=== PATIENT | female | born 1935 | race Caucasian/White ===

== ENCOUNTER 2022-01-06 11:32 | Emergency (ER) | payer MEDICARE, SELFPAY ==
[2022-01-06 11:44] VITALS: BP 150/68; PULSE 68; RESP 16; TEMP 36.7; O2SAT 99
--- NOTE | 2022-01-06 11:49 | ED.SKABFB ---
HPI - Skin/Abscess/Foreign Bdy General Chief complaint: Skin/Abscess/Foreign Body Stated complaint: lac on left foot Time Seen by Provider: 01/06/22 11:50 Source: patient Mode of arrival: ambulatory Limitations: no limitations History of Present Illness HPI narrative: Ms. Mccabe is a an 86-year-old female patient presented to the clinic today with complaints of a old wound to the bottom of the left foot just superior/lateral to the great toe. Laceration measures approximately 2 cm. She reports that she had been seen after stepping on a glass and this cut her foot 8 days ago. She reports that the clinic applied Steri-Strips to the affected area but would not suture it because the wound was old when she was seen. MD complaint: laceration Related Data Home Medications Medication Instructions Recorded Confirmed amlodipine 5 mg tablet 5 mg PO DAILY 01/06/22 01/06/22 levothyroxine 25 mcg tablet 25 mcg PO DAILY 01/06/22 01/06/22 losartan 50 mg tablet 50 mg PO DAILY 01/06/22 01/06/22 pantoprazole 40 mg tablet,delayed 40 mg PO DAILY 01/06/22 01/06/22 release pravastatin 40 mg tablet 40 mg PO DAILY 01/06/22 01/06/22 Allergies Allergy/AdvReac Type Severity Reaction Status Date / Time No Known Allergies Allergy Verified 01/06/22 11:48 Review of Systems Review of Systems: Pertinent positives per HPI. Patient denies any fever, chills, rash, headache, visual changes, dizziness, cough, runny nose, sore throat, shortness of breath, chest pain, palpitations, nausea, vomiting, diarrhea, constipation, abdominal pain, or any urinary issues. PMFSH Comments At the time of my signature, I reviewed and agree with the nursing past medical, surgical, social, and family history. There is no relevant family history pertinent to the patient complaint. Exam Narrative: General: Well-developed, well nourished, in no apparent distress Head: Normocephalic, atraumatic. Cardio: Regular rate and rhythm, s1 and s2 normal, no murmur appreciated. Resp: Clear to auscultation bilaterally, no rhonchi, rales, wheezing or rubs. Integumentary: [place], warm, and dry, approximately 2 cm open laceration that is well approximated to the bottom of the left lateral midfoot. Area is mildly red with mild tenderness to palpation without drainage. No induration palpable Course Course Emergency Course: Portions of this record may have been created with voice recognition software. Level of Care: Express Care Visit Vital Signs Vital signs: Vital Signs Temperature 36.7 C 01/06/22 11:44 Pulse Rate 68 01/06/22 11:44 Respiratory Rate 16 01/06/22 11:44 Blood Pressure 150/68 H 01/06/22 11:44 Pulse Oximetry 99 01/06/22 11:44 Oxygen Delivery Room Air 01/06/22 11:44 Temperature 36.7 C 01/06/22 11:44 Pulse Rate 68 01/06/22 11:44 Respiratory Rate 16 01/06/22 11:44 Blood Pressure 150/68 H 01/06/22 11:44 Pulse Oximetry 99 01/06/22 11:44 Oxygen Delivery Room Air 01/06/22 11:44 Vital signs reviewed MDM - Skin/Abscess/Foreign Bdy MDM Narrative Medical decision making narrative: At the time of assessment patient is resting comfortably on the exam table. She has an old wound to the left medial midfoot. Area has mild redness and tenderness to palpation. I will place her on some mupirocin cream and have her dress her wound twice daily. She is to follow-up with her PCP if symptoms worsen. Supportive measures were discussed and she voiced understanding of discharge instructions Differential Diagnosis Differential diagnosis: Likely abscess of skin or subcutaneous tissue, cellulitis and other (Skin infection) Discharge Plan Discharge Clinical Impression: Open wound Patient Disposition: Home, Self-Care Condition: Stable Instructions: Antibiotic Form, Laceration Without Closure (ED) Additional Instructions: Mupirocin cream as directed May keep covered during the day but leave it open to air at night Tylenol/Motrin
== END 2022-01-06 12:00 | disposition home or self-care (01) ==
PROVIDERS: Emergency Provider Nurse Practitioner Family; PCP Internal Medicine
DX: S91.302A Unspecified open wound, left foot, initial encounter (principal); W25.XXXA Contact with sharp glass, initial encounter; E78.00 Pure hypercholesterolemia, unspecified; I10 Essential (primary) hypertension; K21.9 Gastro-esophageal reflux disease without esophagitis; E03.9 Hypothyroidism, unspecified
CPT/HCPCS: 99213; G0463

== ENCOUNTER 2024-11-29 14:55 | Emergency (ER) | payer MEDICARE, SELFPAY ==
--- OUTSIDE RECORDS SUMMARY | 2024-11-29 14:59 | XMS_ITS | Encounter Summary ---
Author Organization [facility] Address [address] [place] [address] Care Team Providers Care Medical Coding Manager Name Role Phone Alfredo Clark MD Primary Care Provider [phone] Encounter Details Date Type Department Care Team (Late st Contact Info) Description 05/12/2007 Orders Only [facility] Internal Medicine [address] [address] Alfredo Clark MD [address] [place] [address] Social History Tobacco Use Types Packs/Day Years Used Date Smoking Tobacco: Never Assessed Comments Unknown Sex and Gender Information Value Date Recorded Sex Assigned at Not on file Legal Sex Female 3:04 AM DATE PULLER Gender Identity Not on file Sexual Orientation Not on file documented as of this encounter Progress Notes * Alfredo Clark MD - 12/26/2007 9:44 AM CDT WEIGHT: 112lbs BLOOD PRESSURE: 150/86 Right Arm Sitting ( x's 2) NURSE NAME: Yemi Maddox N TOBACCO USE Patient does not currently use tobacco. CHIEF COMPLAINT Patient here for follow up hypertension, osteoporosis. HISTORY: Ongoing work stress, had headache x 1 since last appt, has not been checking bp at home ROS: CARDIAC: No chest pain, palpitations, orthopnea, dyspnea on exertion, or paroxysmal nocturnal dyspnea. RESPIRATORY: No dyspnea, cough, hemoptysis or wheezing. SOCIAL HISTORY: TOBACCO USE: Has no significant smoking history. DISCUSSED SMOKING: neg. PHYSICAL EXAMINATION: CONSTITUTIONAL: GENERAL APPEARANCE: Healthy appearing patient in no distress. NECK/THYROID: Trachea midline. No thyroid enlargement, tenderness, or mass. No supraclavicular or cervical adenopathy. RESPIRATORY: Clear to auscultation and percussion. Normal respiratory effort. CARDIOVASCULAR: CARDIAC: Regular rhythm. No murmurs, rubs, or gallops. ARTERIAL: No aortic bruits. EDEMA/VARICOSITIES OF EXTREMITIES: No edema or varicosities. GASTROINTESTINAL: ABDOMEN: Soft, non-tender, without masses. Bowel sounds active. LIVER/SPLEEN/KIDNEY: No hepatosplenomegaly, tenderness or nodularity. Kidneys not palpable. ASSESSMENT/PLAN: 309.24-ADJUSTMENT REACTION discussed, not much help with wellbutrin ,dc 401.9-HYPERTENSION, UNSPECIFIED addmed MEDICATIONS: TOPROL XL ORAL TABLET 24 HR 100 MG, 1 Every Day, 60 Dispensed, 5 Fills, status: CONTINUED, 03/13/2007. ACCUPRIL ORAL TABLET 40 MG, 1 Every Day, 90 Dispensed, status: CONTINUED, 02/17/2007. AMLODIPINE BESYLATE ORAL TABLET 2.5 MG, 1 Every Day, 30 Dispensed, 4 Fills, status: NEW PRESCRIPTION, 05/12/2007. Patient Education: Risks, benefits, and possible side effects of medication(s) were reviewed with the patient. RETURN VISIT : Patient instructed to return in 6 weeks. Electronically Signed by: Alfredo Clark MD on Saturday, May 12, 2007 documented in this encounter Plan of Treatment Upcoming Encounters Date Type Department Care Team (Late st Contact Info) Description 12/29/2024 11:20 AM CDT Office Visit [facility] Primary Care [address] [place] [facility] [place] [address] Alfredo Clark MD [address] [place] [address] [place] [address] [place] [id number] documented as of this encounter Visit Diagnoses Not on filedocumented in this encounter Care Teams Medical Coding Manager Relationship Specialty Start Date End Date Alfredo Clark MD PCP - General 11/24/07 documented as of this encounter
--- OUTSIDE RECORDS SUMMARY | 2024-11-29 14:59 | XMS_ITS | Clinical Summary ---
Author Organization [facility] Address [address] [place] [address] Phone Care Team Providers Care Homebirth Midwife Name Role Phone Alfredo Clark MD Primary Care Provider [phone] Allergies No known active allergies Medications metoprolol Succinate (TOPROL-XL) 50 MG TABLET SR 24 HR Take 50 mg by mouth daily. Active amLODIPine (NORVASC) 5 MG Tablet Take 5 mg by mouth daily. Active valsartan-hydroC HLOROthiazide (DIOVAN-HCT) 80-12.5 MG Tablet Take 1 Tab by mouth daily. Active cyanocobalamin 1000 MCG Tablet Take 1,000 mcg by mouth daily. Active Cholecalciferol (VITAMIN D) 2000 UNIT Tablet Take 2,000 Units by mouth daily. Active Omeprazole 20 MG Tablet Delayed Response Take 20 mg by mouth daily. Active Probiotic Product (PROBIOTIC DAILY) Capsule Take 1 Cap by mouth daily. 30 Cap 3 10/04/2016 Active loperamide (IMODIUM) 2 MG Capsule Take 1 Cap by mouth 4 times daily as needed for Diarrhea. 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 Chronic GERD 10/03/2016 Resolved Problems Problem Noted Date Diagnosed Date Resolved Date Acute colitis 10/03/2016 10/04/2016 Generalized abdominal pain 10/03/2016 0 10/04/2016 Acute diarrhea 10/03/2016 10/04/2016 Social History Tobacco Use Types Packs/Day Years Used Date Smoking Tobacco: Never Alcohol Use Standard Drinks/Week Comments No 0 (1 standard drink = 0.6 oz pur e alcohol) Comments No Sex and Gender Information Value Date Recorded Sex Assigned at Not on file Legal Sex Female 10:11 PM CDT Gender Identity Not on file Sexual Orientation Not on file Last Filed Vital Signs Vital Sign Reading Time Taken Comments Blood Pressure 141/55 10/04/2016 7:39 AM HOMOEOPATH Pulse 79 10/04/2016 7:39 AM HOMOEOPATH Temperature 36.4 C (97.5 F) 10/04/2016 7:39 AM HOMOEOPATH Respiratory Rate 20 10/04/2016 7:39 AM HOMOEOPATH Oxygen Saturation 96% 10/04/2016 9:01 AM HOMOEOPATH Inhaled Oxygen Concentration - - Weight 52.6 kg (116 lb) 10/03/2016 3:05 AM HOMOEOPATH Height 154.9 cm (5' 1 ) 10/03/2016 3:05 AM HOMOEOPATH Body Mass Index 21.92 10/03/2016 3:05 AM HOMOEOPATH Plan of Treatment Health Maintenance Due Date Last Done Comments DEXA Bone Density 1935 Hepatitis C Virus (HCV) Screening 1935 TdaP Immunization 1935 Pneumococcal Immunization (5 0+ years) (1 of 1 - PCV) 1985 Zoster Immunization (1 of 2) 1985 Respiratory Syncytial Virus (RSV) Immunization (Adult) (1 - 1-dose 75+ series) 2010 Influenza Immunization (#1) 2024 SARS-COV-2 Immunization ( - season) 2024 Hepatitis B Immunization Aged Out No longer eligible based on patient's age to complete this topic Meningococcal Immunization (ACWY) Aged Out No longer eligible based on patient's age to complete this topic Rotavirus Immunization Aged Out No lo nger eligible based on patient's age to complete this topic Insurance [facility] MEDICARE Advance Directives * Full Code (Latest Code Status on File) Date Activated Date Inactivated Comments 10/03/2016 2:36 PM 10/04/2016 2:26 PM CPR-Full Erik atment: FULL ARREST: Attempt Resuscitation/CPR wit intubation and mechanical ventilation. PRE-ARREST: Use entire range of life support measures to stabilize the patient. Care Teams Homebirth Midwife Relationship Specialty Start Date End Date Alfredo Clark MD [address] [place] [address] PCP - General 10/02/16
--- OUTSIDE RECORDS SUMMARY | 2024-11-29 14:59 | XMS_ITS | Referral Summary ---
Author Organization [facility] Address [address] [place] [address] Care Team Providers Care Director Of Safety And Security Name Role Phone Alfredo Clark MD Primary Care Provider + Allergies No known active allergies Medications predniSONE (DELTASONE) 1 mg tablet Take 1 mg by mouth Active losartan-hydroC HLOROthiazide (HYZAAR) 50-12.5 mg per tablet Take 1 tablet by mouth daily Active metoprolol XL (TOPROL-XL) 50 mg 24 hr tablet Take 50 mg by mouth 3 (three) times a day Active pantoprazole DR (PROTONIX) 20 mg EC tablet Take 20 mg by mouth daily Active levothyroxine (SYNTHROID, LEVOTHROID) 25 mcg tablet Take 25 mcg by mouth truck operator before breakfast Active amLODIPine (NORVASC) 2.5 mg tablet Take 2.5 mg by mouth 2 (two) times a day Active pravastatin (PRAVACHOL) 40 mg tablet Take 40 mg by mouth daily Active Active Problems Problem Noted Date Diagnosed Date Inflamed seborrheic keratosis of left cheek 10/10 Assessment & Plan (10/28/2018 3:40 PM CDT): Biopsy site healing well, no complications or signs of infection reported or noted on exam Pathology discussed, benign reassurance given Follow up PRN Assessment & Plan (10/21/2018 3:17 PM CDT): Overlying left zygomatic Biopsy/ies done per procedure note. Wound care reviewed with patient. Follow-up per path. Altered level of consciousness 12/11/2013 Overview (11/16/2016): Spell of altered consciousness Social History Tobacco Use Types Packs/Day Years Used Date Smoking Tobacco: Never Smokeless Tobacco: Never Tobacco Cessation:Counseling Given: Not Answered Alcohol Use Standard Drinks/Week Comments Yes 0 (1 standard drink = 0.6 oz pur e alcohol) occ Comments No Sex and Gender Information Value Date Recorded Sex Assigned at Not on file Legal Sex Female 3:13 AM FHA UNDERWRITER Gender Identity Not on file Sexual Orientation Not on file Occupation Industry Job Start Date Job End Date Retired Not on file Not on file Not on file Last Filed Vital Signs Vital Sign Reading Time Taken Comments Blood Pressure 112/70 02/09/2019 11:01 AM CDT Pulse 73 01/03/2019 7:45 PM CDT Temperature 36.5 C (97.7 F) 01/03/2019 3:07 PM CDT Respiratory Rate 20 01/03/2019 5:52 PM CDT Oxygen Saturation 92% 01/03/2019 7:45 PM CDT Inhaled Oxygen Concentration - - Weight 49 kg (108 lb) 02/05/2023 9:24 AM CDT Height 156.2 cm (5' 1.5 ) 02/05/2023 9:24 AM CDT Body Mass Index 20.08 02/05/2023 9:24 AM CDT Plan of Treatment Not on file Insurance [facility] Care Teams Director Of Safety And Security Relationship Specialty Start Date End Date Alfredo Clark MD PCP - General 10/01/16
--- OUTSIDE RECORDS SUMMARY | 2024-11-29 14:59 | XMS_ITS | Encounter Summary ---
Author Organization [facility] Address [address] [place] [address] Care Team Providers Care Residential Real Estate Agent Name Role Phone Alfredo Clark MD Primary Care Provider [phone] Encounter Details Date Type Department Care Team (Late st Contact Info) Description 10/08/2006 Orders Only [facility] Internal Medicine [address] [address] Alfredo Clark MD [address] [place] [address] Social History Tobacco Use Types Packs/Day Years Used Date Smoking Tobacco: Never Assessed Comments Unknown Sex and Gender Information Value Date Recorded Sex Assigned at Not on file Legal Sex Female 3:04 AM STUDENT AFFAIRS DEAN Gender Identity Not on file Sexual Orientation Not on file documented as of this encounter Progress Notes * Alfredo Clark MD - 01/02/2008 9:49 PM CDT WEIGHT: 116lbs BLOOD PRESSURE: 112/70 Right Arm Sitting NURSE NAME: Devante Madhuri, R CHIEF COMPLAINT Patient here for follow up hypertension, osteoporosis. HISTORY: HISTORY: 276.7-HYPERKALEMIA stable 309.24-ADJUSTMENT REACTION did not take med 401.9-HYPERTENSION, UNSPECIFIED The patient is tolerating the medication. The patient denies chest pain, shortness of breath, dyspnea on exertion, pedal edema, or headache. PHYSICAL EXAMINATION: CONSTITUTIONAL: GENERAL APPEARANCE: Healthy appearing [...] tenderness or nodularity. Kidneys not palpable. ASSESSMENT/PLAN: 276.7-HYPERKALEMIA stable, recheck lab 309.24-ADJUSTMENT REACTION discussed, pt does not want med 401.9-HYPERTENSION, UNSPECIFIED cont med, home monitor LAB ORDERS: 3 mo Order number: [id number] Test Ordered: COMPREHENSIVE METABOLIC PANEL W/ GLOMERULAR FILTRATION RATE, ESTIMATED (EGFR) [id number] RETURN VISIT : Patient instructed to return in 3 months. Electronically Signed by: Alfredo Clark MD on Sunday, October 08, 2006 documented in this encounter Plan of Treatment Upcoming Encounters Date Type Department Care Team (Late st Contact Info) Description 12/29/2024 11:20 AM CDT Office Visit [facility] [place] [address] Alfredo Clark MD [address] [place] [address] documented as of this encounter Visit Diagnoses Not on filedocumented in this encounter Care Teams Residential Real Estate Agent Relationship Specialty Start Date End Date Alfredo Clark MD PCP - General 11/24/07 documented as of this encounter
--- OUTSIDE RECORDS SUMMARY | 2024-11-29 14:59 | XMS_ITS | Encounter Summary ---
Author Organization [facility] Address [address] [place] [address] Care Team Providers Care Change Number Operator Name Role Phone Alfredo Clark MD Primary Care Provider [phone] Encounter Details Date Type Department Care Team (Late Contact Info) Description 05/03/2006 Orders Only [facility] Internal Medicine [address] [address] Alfredo Clark MD [address] [place] [address] [address] [place] [address] Social History Tobacco Use Types Packs/Day Years Used Date Smoking Tobacco: Never Assessed Comments Unknown Sex and Gender Information Value Date Recorded Sex Assigned at Not on file Legal Sex Female 3:04 AM LATH TIER Gender Identity Not on file Sexual Orientation Not on file documented as of this encounter Plan of Treatment Upcoming Encounters Date Type Department Care Team (Late st Contact Info) Description 12/29/2024 11:20 AM CDT Office Visit [facility] Primary Care [address] [place] [address] Alfredo Clark MD [address] [place] [address] [address] [place] [address] documented as of this encounter Visit Diagnoses Not on filedocumented in this encounter Care Teams Change Number Operator Relationship Specialty Start Date End Date Alfredo Clark MD PCP - General 11/24/07 documented as of this encounter
--- OUTSIDE RECORDS SUMMARY | 2024-11-29 14:59 | XMS_ITS | Encounter Summary ---
Author Organization [facility] Address [address] [place] [address] Care Team Providers Care Groover And Striper Operator Name Role Phone Alfredo Clark MD Primary Care Provider [phone] Encounter Details Date Type Department Care Team (Late Contact Info) Description 10/08/2006 Outpatient Historical [facility] Internal Medicine [address] [address] Alfredo Clark MD [address] [place] [address] [address] [place] [address] Social History Tobacco Use Types Packs/Day Years Used Date Smoking Tobacco: Never Assessed Comments Unknown Sex and Gender Information Value Date Recorded Sex Assigned at Not on file Legal Sex Female 3:04 AM DRIER AND GRINDER TENDER Gender Identity Not on file Sexual Orientation Not on file documented as of this encounter Last Filed Vital Signs Vital Sign Reading Time Taken Comments Blood Pressure 112/70 10/08/2006 9:30 AM DRIER AND GRINDER TENDER Pulse - - Temperature - - Respiratory Rate - - Oxygen Saturation - - Inhaled Oxygen Concentration - - Weight 52.6 kg (116 lb) 10/08/2006 9:30 AM DRIER AND GRINDER TENDER Height - - Body Mass Index 21.92 10/07/2003 9:30 AM DRIER AND GRINDER TENDER documented in this encounter Plan of Treatment Upcoming Encounters Date Type Department Care Team (Late st Contact Info) Description 12/29/2024 11:20 AM CDT Office Visit [facility] Primary Care [address] [place] [address] Alfredo Clark MD [address] [place] [address] [address] [place] [address] documented as of this encounter Visit Diagnoses Not on filedocumented in this encounter Care Teams Groover And Striper Operator Relationship Specialty Start Date End Date Alfredo Clark MD PCP - General 11/24/07 documented as of this encounter
--- OUTSIDE RECORDS SUMMARY | 2024-11-29 14:59 | XMS_ITS | Encounter Summary ---
Author Organization [facility] Address [address] [place] [address] Care Team Providers Care Folding Rules Printing Machine Operator Name Role Phone Alfredo Clark MD Primary Care Provider [phone] Encounter Details Date Type Department Care Team (Late st Contact Info) Description 02/15/2005 Outpatient Historical [facility] Internal Medicine [address] [address] Alfredo Clark MD [address] [place] [address] [address] [place] [address] Social History Tobacco Use Types Packs/Day Years Used Date Smoking Tobacco: Never Assessed Comments Unknown Sex and Gender Information Value Date Recorded Sex Assigned at Not on file Legal Sex Female 3:04 AM INFANTRY INDIRECT FIRE CREWMEMBER Gender Identity Not on file Sexual Orientation Not on file documented as of this encounter Last Filed Vital Signs Vital Sign Reading Time Taken Comments Blood Pressure 140/72 02/15/2005 9:45 AM CDT Pulse - - Temperature - - Respiratory Rate - - Oxygen Saturation - - Inhaled Oxygen Concentration - - Weight 53.1 kg (117 lb) 02/15/2005 9:45 AM CDT Height - - Body Mass Index 22.11 10/07/2003 9:30 AM INFANTRY INDIRECT FIRE CREWMEMBER documented in this encounter Plan of Treatment Upcoming Encounters Date Type Department Care Team (Late st Contact Info) Description 12/29/2024 11:20 AM CDT Office Visit [facility] Primary Care [address] [place] [address] Alfredo Clark MD [address] [place] [address] [address] [place] [address] documented as of this encounter Visit Diagnoses Not on filedocumented in this encounter Care Teams Folding Rules Printing Machine Operator Relationship Specialty Start Date End Date Alfredo Clark MD PCP - General 11/24/07 documented as of this encounter
--- OUTSIDE RECORDS SUMMARY | 2024-11-29 14:59 | XMS_ITS | Encounter Summary ---
Author Organization [facility] Address [address] [place] [address] Care Team Providers Care Business Performance Advisor Name Role Phone Alfredo Clark MD Primary Care Provider Encounter Details Date Type Department Care Team (Late st Contact Info) Description 01/17/2006 Outpatient Historical [facility] Internal Medicine [address] [address] Alfredo Clark MD [address] [place] [address] [address] [place] [address] Social History Tobacco Use Types Packs/Day Years Used Date Smoking Tobacco: Never Assessed Comments Unknown Sex and Gender Information Value Date Recorded Sex Assigned at Not on file Legal Sex Female 3:04 AM SENIOR ACCOUNT CLERK Gender Identity Not on file Sexual Orientation Not on file documented as of this encounter Last Filed Vital Signs Vital Sign Reading Time Taken Comments Blood Pressure 138/72 01/17/2006 11:30 AM CDT Pulse - - Temperature - - Respiratory Rate - - Oxygen Saturation - - Inhaled Oxygen Concentration - - Weight 50.8 kg (112 lb) 01/17/2006 11:30 AM CDT Height - - Body Mass Index 21.16 10/07/2003 9:30 AM SENIOR ACCOUNT CLERK documented in this encounter Plan of Treatment Upcoming Encounters Date Type Department Care Team (Late st Contact Info) Description 12/29/2024 11:20 AM CDT Office Visit [facility] Primary Care [address] [place] [address] Alfredo Clark MD [address] [place] [address] [address] [place] [address] documented as of this encounter Visit Diagnoses Not on filedocumented in this encounter Care Teams Business Performance Advisor Relationship Specialty Start Date End Date Alfredo Clark MD PCP - General 11/24/07 documented as of this encounter
--- OUTSIDE RECORDS SUMMARY | 2024-11-29 14:59 | XMS_ITS | Encounter Summary ---
Author Organization [facility] Address [address] [place] [address] Care Team Providers Care Manager Mac Name Role Phone Alfredo Clark MD Primary Care Provider [phone] Encounter Details Date Type Department Care Team (Late Contact Info) Description 06/23/2007 Outpatient Historical [facility] Internal Medicine [address] [address] Alfredo Clark MD [address] [place] [address] [address] [place] [address] Social History Tobacco Use Types Packs/Day Years Used Date Smoking Tobacco: Never Assessed Comments Unknown Sex and Gender Information Value Date Recorded Sex Assigned at Not on file Legal Sex Female 3:04 AM VICE PRESIDENT OF NURSING Gender Identity Not on file Sexual Orientation Not on file documented as of this encounter Last Filed Vital Signs Vital Sign Reading Time Taken Comments Blood Pressure 128/70 06/23/2007 9:30 AM VICE PRESIDENT OF NURSING Pulse - - Temperature - - Respiratory Rate - - Oxygen Saturation - - Inhaled Oxygen Concentration - - Weight 51.3 kg (113 lb) 06/23/2007 9:30 AM VICE PRESIDENT OF NURSING Height - - Body Mass Index 21.35 10/07/2003 9:30 AM VICE PRESIDENT OF NURSING documented in this encounter Plan of Treatment Upcoming Encounters Date Type Department Care Team (Late st Contact Info) Description 12/29/2024 11:20 AM CDT Office Visit [facility] Primary Care [address] [place] [address] Alfredo Clark MD [address] [place] [address] [address] [place] [address] documented as of this encounter Visit Diagnoses Not on filedocumented in this encounter Care Teams Manager Mac Relationship Specialty Start Date End Date Alfredo Clark MD PCP - General 11/24/07 documented as of this encounter
--- OUTSIDE RECORDS SUMMARY | 2024-11-29 14:59 | XMS_ITS | Encounter Summary ---
Author Organization [facility] Address [address] [place] [address] Care Team Providers Care Associate Financial Representative Name Role Phone Alfredo Clark MD Primary Care Provider Encounter Details Date Type Department Care Team (Late Contact Info) Description 02/17/[address] [facility] Internal Medicine [address] [address] Alfredo Clark MD [address] [place] [address] [address] [place] [address] Social History Tobacco Use Types Packs/Day Years Used Date Smoking Tobacco: Never Assessed Comments Unknown Sex and Gender Information Value Date Recorded Sex Assigned at Not on file Legal Sex Female 3:04 AM TWISTER IN Gender Identity Not on file Sexual Orientation Not on file documented as of this encounter Plan of Treatment Upcoming Encounters Date Type Department Care Team (Late st Contact Info) Description 12/29/2024 11:20 AM CDT Office Visit [facility] Primary Care [address] [place] [address] Alfredo Clark MD [address] [place] [address] [address] [place] [address] documented as of this encounter Visit Diagnoses Not on filedocumented in this encounter Care Teams Associate Financial Representative Relationship Specialty Start Date End Date Alfredo Clark MD PCP - General 11/24/07 documented as of this encounter
--- OUTSIDE RECORDS SUMMARY | 2024-11-29 14:59 | XMS_ITS | Encounter Summary ---
Author Organization [facility] Address [address] [place] [address] Care Team Providers Care Clothing Pattern Preparer Name Role Phone Alfredo Clark MD Primary Care Provider [phone] Encounter Details Date Type Department Care Team (Late st Contact Info) Description 02/10/2007 Outpatient Historical [facility] Internal Medicine [address] [address] Alfredo Clark MD [address] [place] [address] [address] [place] [address] Social History Tobacco Use Types Packs/Day Years Used Date Smoking Tobacco: Never Assessed Comments Unknown Sex and Gender Information Value Date Recorded Sex Assigned at Not on file 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 Gender Identity Not on file Sexual Orientation Not on file documented as of this encounter Last Filed Vital Signs Vital Sign Reading Time Taken Comments Blood Pressure 140/70 02/10/2007 10:00 AM CDT Pulse - - Temperature - - Respiratory Rate - - Oxygen Saturation - - Inhaled Oxygen Concentration - - Weight 51.7 kg (114 lb) 02/10/2007 10:00 AM CDT Height - - Body Mass Index 21.54 10/07/2003 9:30 AM BAKERY SALES CLERK documented in this encounter Plan of Treatment Upcoming Encounters Date Type Department Care Team (Late st Contact Info) Description 12/29/2024 11:20 AM CDT Office Visit [facility] Primary Care [address] [place] [address] Alfredo Clark MD [address] [place] [address] [address] [place] [address] documented as of this encounter Visit Diagnoses Not on filedocumented in this encounter Care Teams Clothing Pattern Preparer Relationship Specialty Start Date End Date Alfredo Clark MD PCP - General 11/24/07 documented as of this encounter
--- OUTSIDE RECORDS SUMMARY | 2024-11-29 14:59 | XMS_ITS | Encounter Summary ---
Author Organization [facility] Address 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 Gender Identity Not on file Sexual Orientation Not on file documented as of this encounter Plan of Treatment Upcoming Encounters Date Type Department Care Team (Late st Contact Info) Description 12/29/2024 11:20 AM CDT Office Visit [facility] Primary Care [address] [place] [address] Alfredo Clark MD [address] [place] [address] [address] [place] [address] documented as of this encounter Visit Diagnoses Not on filedocumented in this encounter Care Teams Turn Down Attendant Relationship Specialty Start Date End Date Alfredo Clark MD PCP - General 11/24/07 documented as of this encounter
--- OUTSIDE RECORDS SUMMARY | 2024-11-29 14:59 | XMS_ITS | Encounter Summary ---
Author Organization [facility] Address 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 HISTORY: HISTORY: 309.24-ADJUSTMENT REACTION work stress continues 401.9-HYPERTENSION, UNSPECIFIED erratic 733.00-OSTEOPOROSIS No complications noted from the medication presently being used. 780.79-FATIGUE 789.07-ABDOMINAL PAIN GENERALIZED lower feels like things falling ROS: CARDIAC: No chest pain, palpitations, orthopnea, dyspnea on exertion, or paroxysmal nocturnal dyspnea. RESPIRATORY: No dyspnea, cough, hemoptysis or wheezing. : No frequency, urgency, hematuria or dysuria. PAST MEDICAL HISTORY: htn, stress FAMILY HISTORY: htn,brother renal carcinoma SOCIAL HISTORY: TOBACCO USE: Has no significant smoking history. 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 PHYSICAL EXAMINATION: CONSTITUTIONAL: GENERAL APPEARANCE: Healthy appearing patient in no distress. NECK/THYROID: Trachea midline. No thyroid enlargement, tenderness, or mass. No supraclavicular or cervical adenopathy. RESPIRATORY: Clear to auscultation and percussion. Normal respiratory effort. CARDIOVASCULAR: CARDIAC: Regular rhythm. No murmurs, rubs, or gallops. ARTERIAL: Aortic pulses of normal amplitude with no bruits. EDEMA/VARICOSITIES OF EXTREMITIES: No edema or varicosities. GASTROINTESTINAL: ABDOMEN: Soft, non-tender, without masses. Bowel sounds active. LIVER/SPLEEN/KIDNEY: No hepatosplenomegaly, tenderness or nodularity. Kidneys not palpable. SKIN: SKIN: Warm, dry, no diaphoresis, no significant lesions, irritation, rashes or ulcers. No induration, obvious subcutaneous nodules or tightening. ASSESSMENT/PLAN: 309.24-ADJUSTMENT REACTION discussed start med pt did not after last appt MEDICATIONS: LEXAPRO ORAL TABLET 10 MG, 1/2 Every Day, 30 Dispensed, status: NEW PRESCRIPTION, 02/15/2005. 401.9-HYPERTENSION, UNSPECIFIED change med, pt only taking once daily MEDICATIONS: TOPROL XL ORAL TABLET 24 HR 100 MG, 1 Every Day, 30 Dispensed, 1 Fills, status: NEW PRESCRIPTION, 12/19/2005. LAB ORDERS: Order number: [id number] Test Ordered: COMPREHENSIVE METABOLIC PANEL W/ GLOMERULAR FILTRATION RATE, ESTIMATED (EGFR) 04167 Order number: [id number] Test Ordered: LIPID PANEL 7600 Order number: [id number] Test Ordered: TSH 899 733.00-OSTEOPOROSIS contmed 789.07-ABDOMINAL PAIN GENERALIZED discuss--send side hemmer, order colonoscopy SPECIALTY REFERRAL: GASTROENTEROLOGY Burak or Leonor in [place] for colonoscopy RETURN VISIT : Patient instructed to return in 1 month. Electronically Signed by: Vu Garcia MD on Monday, December 19, 2005 * Vu Garcia MD - 05/21/2008 4:21 AM CDT SPECIALIST REFERRAL REQUEST DATE: DECEMBER 19, 2005 Note created by: Tamara Lara C 12:52 p Patient Name : AYESHA MCCABE [address]: [address] [place] [address] D.O.B: 1935 SSN: [id number] Parent/Guardian if applicable: Patient Insurance: MEDICARE Policy#: [id number] Group #: Best To Call : WORK.8-4 or Home after 4:30 p.m. Best Time to Call : MORNING. December We Leave Message At That Number : YES, LEAVE MESSAGE. Referring to: GASTROENTEROLOGY Dr. Sumner or Dr. Leonor Neville REASON FOR REFERRAL: Colonoscopy PATIENT DIAGNOSIS: . 789.07-ABDOMINAL PAIN GENERALIZED ORDERING PHYSICIAN : VU GARCIA MD PRIORITY OF REFERRAL: AT PATIENT'S CONVENIENCE. OFFICE NURSES DIRECTOR & PHONE : nuvia [phone] FOR SCHEDULING USE ONLY: FIRST ATTEMPT Date:DECEMBER 20, 2005 Marley Hinojosa 01:[address] Sumner's office. [phone] SECOND ATTEMPT: Date:MAR 01, 2006 Marley Hinojosa 01:07 p APPOINTMENT DATE : 01/22/2006 ( with Dr. Gagnon) Referral number: Medicare NN BCBS NN ligotm 03/01/2006 01:07 p Referral/Pre-auth communicated: Referral information phoned to patient. documented in this encounter Plan of Treatment Upcoming Encounters Date Type Department Care Team (Late st Contact Info) Description 12/29/2024 11:20 AM CDT Office Visit [facility] Care [address] [place] [address] Vu Garcia MD [address] [place] [address] [address] [place] [address] documented as of this encounter Visit Diagnoses Not on filedocumented in this encounter Care Teams Granite Sandblaster Apprentice Relationship Specialty Start Date End Date Vu Garcia MD PCP - General 11/24/07 documented as of this encounter
--- OUTSIDE RECORDS SUMMARY | 2024-11-29 14:59 | XMS_ITS | Encounter Summary ---
Author Organization [facility] Address [address] [place] [address] Care Team Providers Care Washer Assembler Name Role Phone Alfredo Clark MD Primary Care Provider [phone] Encounter Details Date Type Department Care Team (Late Contact Info) Description 08/20/2007 Orders Only [facility] Internal Medicine [address] [address] Alfredo Clark MD [address] [place] [address] [address] [place] [address] Social History Tobacco Use Types Packs/Day Years Used Date Smoking Tobacco: Never Assessed Comments Unknown Sex and Gender Information Value Date Recorded Sex Assigned at Not on file Legal Sex Female 3:04 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 FRAMER Gender Identity Not on file Sexual Orientation Not on file documented as of this encounter Plan of Treatment Upcoming Encounters Date Type Department Care Team (Late st Contact Info) Description 12/29/2024 11:20 AM CDT Office Visit [facility] Primary Care [address] [place] [address] Alfredo Clark MD [address] [place] [address] [address] [place] [address] documented as of this encounter Visit Diagnoses Not on filedocumented in this encounter Care Teams Washer Assembler Relationship Specialty Start Date End Date Alfredo Clark MD PCP - General 11/24/07 documented as of this encounter
--- OUTSIDE RECORDS SUMMARY | 2024-11-29 14:59 | XMS_ITS | Encounter Summary ---
Author Organization [facility] Address [address] [place] [address] Care Team Providers Care Hourly Team Members Name Role Phone Alfredo Clark MD Primary Care Provider [phone] Encounter Details Date Type Department Care Team (Late st Contact Info) Description 12/25/2004 Outpatient Historical [facility] Internal Medicine [address] [address] Alfredo Clark MD [address] [place] [address] [address] [place] [address] Social History Tobacco Use Types Packs/Day Years Used Date Smoking Tobacco: Never Assessed Comments Unknown Sex and Gender Information Value Date Recorded Sex Assigned at Not on file Legal Sex Female 3:04 AM HOUSEHOLD 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 REPAIRER Gender Identity Not on file Sexual Orientation Not on file documented as of this encounter Last Filed Vital Signs Vital Sign Reading Time Taken Comments Blood Pressure 170/86 12/25/2004 11:30 AM CDT Pulse - - Temperature - - Respiratory Rate - - Oxygen Saturation - - Inhaled Oxygen Concentration - - Weight 53.1 kg (117 lb) 12/25/2004 11:30 AM CDT Height - - Body Mass Index 22.11 10/07/2003 9:30 AM HOUSEHOLD APPLIANCE REPAIRER documented in this encounter Plan of Treatment Upcoming Encounters Date Type Department Care Team (Late st Contact Info) Description 12/29/2024 11:20 AM CDT Office Visit [facility] Primary Care [address] [place] [address] [place] [address] Alfredo Clark MD [address] [place] [address] [address] [place] [address] documented as of this encounter Visit Diagnoses Not on filedocumented in this encounter Care Teams Hourly Team Members Relationship Specialty Start Date End Date Alfredo Clark MD PCP - General 11/24/07 documented as of this encounter
--- OUTSIDE RECORDS SUMMARY | 2024-11-29 14:59 | XMS_ITS | Encounter Summary ---
Author Organization [facility] Address [address] [place] [address] Care Team Providers Care Talent Associate Name Role Phone Alfredo Clark MD Primary Care Provider [phone] Encounter Details Date Type Department Care Team (Late Contact Info) Description 07/13/2004 Outpatient Historical [facility] Internal Medicine [address] [address] Alfredo Clark MD [address] [place] [address] [address] [place] [address] Social History Tobacco Use Types Packs/Day Years Used Date Smoking Tobacco: Never Assessed Comments Unknown Sex and Gender Information Value Date Recorded Sex Assigned at Not on file Legal Sex Female 3:04 AM EXPLOSIVE OPERATOR Gender Identity Not on file Sexual Orientation Not on file documented as of this encounter Last Filed Vital Signs Vital Sign Reading Time Taken Comments Blood Pressure 130/80 07/13/2004 10:15 AM EXPLOSIVE OPERATOR Pulse - - Temperature - - Respiratory Rate - - Oxygen Saturation - - Inhaled Oxygen Concentration - - Weight 53.1 kg (117 lb) 07/13/2004 10:15 AM EXPLOSIVE OPERATOR Height - - Body Mass Index 22.11 10/07/2003 9:30 AM EXPLOSIVE OPERATOR documented in this encounter Plan of Treatment Upcoming Encounters Date Type Department Care Team (Late st Contact Info) Description 12/29/2024 11:20 AM CDT Office Visit [facility] Primary Care [address] [place] [address] Alfredo Clark MD [address] [place] [address] [address] [place] [address] documented as of this encounter Visit Diagnoses Not on filedocumented in this encounter Care Teams Talent Associate Relationship Specialty Start Date End Date Alfredo Clark MD PCP - General 11/24/07 documented as of this encounter
--- OUTSIDE RECORDS SUMMARY | 2024-11-29 14:59 | XMS_ITS | Encounter Summary ---
Author Organization [facility] Address [address] [place] [address] Care Team Providers Care Tool Worker Name Role Phone Alfredo Clark MD Primary Care Provider [phone] Encounter Details Date Type Department Care Team (Late st Contact Info) Description 07/09/2006 Orders Only [facility] Internal Medicine [address] [address] Alfredo Clark MD [address] [place] [address] Social History Tobacco Use Types Packs/Day Years Used Date Smoking Tobacco: Never Assessed Comments Unknown Sex and Gender Information Value Date Recorded Sex Assigned at Not on file Legal Sex Female 3:04 AM CONCESSION STAND ATTENDANT Gender Identity Not on file Sexual Orientation Not on file documented as of this encounter Progress Notes * Alfredo Clark MD - 05/26/2008 1:13 AM CDT WEIGHT: 115lbs BLOOD PRESSURE: 132/74 Right Arm Sitting NURSE NAME: Tran Haq J CHIEF COMPLAINT Patient here for follow up hypertension, osteoporosis., hyperkalemia HISTORY: HISTORY: 276.7-HYPERKALEMIA stable 309.24-ADJUSTMENT REACTION off med, a little worse 401.9-HYPERTENSION, UNSPECIFIED The patient is tolerating the medication. The blood pressure readings taken outside the office since the last visit have been in the target range. PHYSICAL EXAMINATION: CONSTITUTIONAL: GENERAL APPEARANCE: Healthy appearing [...] nodularity. Kidneys not palpable. ASSESSMENT/PLAN: 276.7-HYPERKALEMIA stable, cont monitor 309.24-ADJUSTMENT REACTION discussed, add med MEDICATIONS: LEXAPRO ORAL TABLET 10 MG, 1 Every Day, 30 Dispensed, 3 Fills, status: NEW PRESCRIPTION, 07/09/2006. 401.9-HYPERTENSION, UNSPECIFIED cont med, reassess for diuretic RETURN VISIT : Patient instructed to return in 3 months. Electronically Signed by: Alfredo Clark MD on Sunday, July 09, 2006 documented in this encounter Plan of Treatment Upcoming Encounters Date Type Department Care Team (Late st Contact Info) Description 12/29/2024 11:20 AM CDT Office Visit [facility] Primary Care [address] [address] Alfredo Clark MD [address] [place] [address] documented as of this encounter Visit Diagnoses Not on filedocumented in this encounter Care Teams Tool Worker Relationship Specialty Start Date End Date Alfredo Clark MD PCP - General 11/24/07 documented as of this encounter
--- OUTSIDE RECORDS SUMMARY | 2024-11-29 14:59 | XMS_ITS | Encounter Summary ---
Author Organization [facility] Address [address] [place] [address] Care Team Providers Care Seed Analysis Laboratory Assistant Name Role Phone Alfredo Clark MD Primary Care Provider [phone] Encounter Details Date Type Department Care Team (Late Contact Info) Description 11/23/2005 Orders Only [facility] Internal Medicine [address] [address] Alfredo Clark MD [address] [place] [address] [address] [place] [address] Social History Tobacco Use Types Packs/Day Years Used Date Smoking Tobacco: Never Assessed Comments Unknown Sex and Gender Information Value Date Recorded Sex Assigned at Not on file Legal Sex Female 3:04 AM AVIATION TECHNICAL SYSTEMS SPECIALIST Gender Identity Not on file Sexual Orientation Not on file documented as of this encounter Plan of Treatment Upcoming Encounters Date Type Department Care Team (Late st Contact Info) Description 12/29/2024 11:20 AM CDT Office Visit [facility] Primary Care [address] [place] [address] Alfredo Clark MD [address] [place] [address] [address] [place] [address] documented as of this encounter Visit Diagnoses Not on filedocumented in this encounter Care Teams Seed Analysis Laboratory Assistant Relationship Specialty Start Date End Date Alfredo Clark MD PCP - General 11/24/07 documented as of this encounter
--- OUTSIDE RECORDS SUMMARY | 2024-11-29 14:59 | XMS_ITS | Encounter Summary ---
Author Organization [facility] Address [address] [place] [address] Care Team Providers Care Red Mud Thickener Operator Name Role Phone Alfredo Clark MD Primary Care Provider [phone] Encounter Details Date Type Department Care Team (Late st Contact Info) Description 03/26/2007 Orders Only [facility] Internal Medicine [address] [address] Alfredo Clark MD [address] [place] [address] Social History Tobacco Use Types Packs/Day Years Used Date Smoking Tobacco: Never Assessed Comments Unknown Sex and Gender Information Value Date Recorded Sex Assigned at Not on file Legal Sex Female 3:04 AM LICENSED MORTGAGE LOAN OFFICER Gender Identity Not on file Sexual Orientation Not on file documented as of this encounter Progress Notes * Alfredo Clark MD - 12/30/2007 1:05 PM CDT TIME:05:19 pm PATIENT`S HOME PHONE: PATIENT`S WORK PHONE: PATIENT`S INSURANCE: MEDICARE WHO TOOK THE CALL: Tran Haq J GENERAL INFORMATION LAST VISIT: 02/18/07 WHO CALLED: Pharmacy called. PHARMACY NUMBER: [phone] SECTION 1: REQUESTED ACTION renee 03/26/07 at 05:19 pm: MEDICATION REQUEST: MEDICATION REQUEST: Patient requests a refill. evista 60mg #30 LF 02/17/07 DOCTOR`S RESPONSE: allyn 08/15/07 at 05:26 pm MEDICATIONS: EVISTA ORAL TABLET 60 MG, 1 Every Day, 90 Dispensed, 3 Fills, 90 Duration/Days Supply, status: CONTINUED, 03/26/2007. FINAL ACTION: licasl 03/27/07 at 09:43 am Called pharmacy at 03/27/07 at 09:43 am. Electronically Signed by: Rosana Marie on March documented in this encounter Plan of Treatment Upcoming Encounters Date Type Department Care Team (Late st Contact Info) Description 12/29/2024 11:20 AM CDT Office Visit [facility] [address] [place] [address] Alfredo Clark MD [address] [place], [place] [address] documented as of this encounter Visit Diagnoses Not on filedocumented in this encounter Care Teams Red Mud Thickener Operator Relationship Specialty Start Date End Date Alfredo Clark MD PCP - General 11/24/07 documented as of this encounter
--- OUTSIDE RECORDS SUMMARY | 2024-11-29 14:59 | XMS_ITS | Encounter Summary ---
Author Organization [facility] Address 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 Gender Identity Not on file Sexual Orientation Not on file documented as of this encounter Plan of Treatment Upcoming Encounters Date Type Department Care Team (Late st Contact Info) Description 12/29/2024 11:20 AM CDT Office Visit [facility] Primary Care [address] [place] [address] Alfredo Clark MD [address] [place] [address] [address] [place] [address] documented as of this encounter Visit Diagnoses Not on filedocumented in this encounter Care Teams Welder Metal Fab Relationship Specialty Start Date End Date Alfredo Clark MD PCP - General 11/24/07 documented as of this encounter
--- OUTSIDE RECORDS SUMMARY | 2024-11-29 14:59 | XMS_ITS | Encounter Summary ---
Author Organization [facility] Address 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 AM POLICE GUARD Gender Identity Not on file Sexual Orientation Not on file documented as of this encounter Plan of Treatment Upcoming Encounters Date Type Department Care Team (Late st Contact Info) Description 12/29/2024 11:20 AM CDT Office Visit [facility] Primary Care [address] [place] [address] Alfredo Clark MD [address] [place] [address] [address] [place] [address] documented as of this encounter Visit Diagnoses Not on filedocumented in this encounter Care Teams Instructor Painting Relationship Specialty Start Date End Date Alfredo Clark MD PCP - General 11/24/07 documented as of this encounter
--- OUTSIDE RECORDS SUMMARY | 2024-11-29 14:59 | XMS_ITS | Encounter Summary ---
Author Organization [facility] Address [address] [place] [address] Care Team Providers Care Canvas Shrinker Name Role Phone Alfredo Clark MD Primary Care Provider Encounter Details Date Type Department Care Team (Late Contact Info) Description 08/25/2007 Outpatient Historical [facility] Internal Medicine [address] [address] Alfredo Clark MD [address] [place] [address] Social History Tobacco Use Types Packs/Day Years Used Date Smoking Tobacco: Never Assessed Comments Unknown Sex and Gender Information Value Date Recorded Sex Assigned at Not on file Legal Sex Female 3:04 AM TOP LIFT TRIMMER Gender Identity Not on file Sexual Orientation Not on file documented as of this encounter Plan of Treatment Upcoming Encounters Date Type Department Care Team (Late st Contact Info) Description 12/29/2024 11:20 AM CDT Office Visit [facility]3] Primary Care [address] [place] [address] Alfredo Clark MD [address] [place] [address] [address] [place] [address] documented as of this encounter Visit Diagnoses Not on filedocumented in this encounter Care Teams Canvas Shrinker Relationship Specialty Start Date End Date Alfredo Clark MD PCP - General 11/24/07 documented as of this encounter
--- OUTSIDE RECORDS SUMMARY | 2024-11-29 14:59 | XMS_ITS | Clinical Summary ---
Author Organization [facility] Address [address] [place] [address] Care Team Providers Care Quilter Fixer Name Role Phone Alfredo Clark MD Primary [...] mcg tablet Take 25 mcg by mouth program coordinator for residence life before breakfast Active amLODIPine (NORVASC) 2.5 mg [...] 12/11/2013 Overview (11/16/2016): Spell of altered consciousness Surgical History Surgery Date Site/Laterality Comments LUMBAR PUNCTURE WO INJECTION, DIAGNOSTIC 10/20/2013 N/A Medical History Medical History Date Comments Gastric ulcer Stomach ulcer Hypertension Hypertension PMR (polymyalgia rheumatica) Hypothyroid Family History Medical History Relation Name Comments Emphysema Father Heart attack Father heart failure/M I - cause of Breast cancer Mother Cancer, breast ; Recurred in her 80s Ovarian cancer Neg Hx Thyroid cancer Neg Hx Relation Name Status Comments Father (Age 72) Mother (Age 90) Social History Tobacco Use Types Packs/Day Years Used Date Smoking Tobacco: Never Smokeless Tobacco: Never Tobacco Cessation:Counseling Given: Not Answered Alcohol Use Standard Drinks/Week Comments Yes 0 (1 standard drink = 0.6 oz pur e alcohol) occ Comments No Sex and Gender Information Value Date Recorded Sex Assigned at Not on file Legal Sex Female 3:13 AM FACILITIES ENGINEERING MANAGER Gender Identity Not on file Sexual Orientation Not on file Occupation Industry Job Start Date Job End Date Retired Not on file Not on file Not on file Obstetrics History Para Term AB IAB SAB Ectopic Multiple Livin g Live Births 4 4 4 4 Date Outcome GA Total Labor Labor/2nd/3rd Weight Sex Type Anes PTL Amie A1 A5 Name Clin Term Term Term Term Last Filed Vital Signs Vital Sign Reading [...] 02/05/2023 9:24 AM CDT Plan of Treatment Health Maintenance Due Date Last Done Comments Depression Screening 1935 Fall Risk Assessment 1935 Hepatitis B Screening 1953 Well Visit 65+ 2000 Influenza Vaccine (#1) 2024 3, 05/13/2020, 05/12/2019, Additional history exists DTaP/Tdap/Td Vaccine (3 - Td or Tdap) 12/31/2031 12/30/2021, 12/11/2012, 09/08/2002 Pneumococcal vaccine 65+ Completed 019, 03/05/2014, 08/17/2008, Additional history exists Zoster Vaccine Completed 01/14/2022, 06/20/[address] [facility] [employer] [facility] Store [place] [address] [facility] Care Teams Quilter Fixer Relationship Specialty Start Date End Date Alfredo Clark MD PCP - General 10/01/16
--- OUTSIDE RECORDS SUMMARY | 2024-11-29 14:59 | XMS_ITS | Encounter Summary ---
Author Organization [facility] Address [address] [place] [address] Care Team Providers Care Dictating Transcribing Machine Servicer Name Role Phone Alfredo Clark MD Primary Care Provider [phone] Encounter Details Date Type Department Care Team (Late st Contact Info) Description 04/09/2006 Outpatient Historical [facility] Internal Medicine [address] [address] Alfredo Clark MD [address] [place] [address] [address] [place] [address] Social History Tobacco Use Types Packs/Day Years Used Date Smoking Tobacco: Never Assessed Comments Unknown Sex and Gender Information Value Date Recorded Sex Assigned at Not on file Legal Sex Female 3:04 AM PUBLIC HEALTH PHYSICIAN Gender Identity Not on file Sexual Orientation Not on file documented as of this encounter Last Filed Vital Signs Vital Sign Reading Time Taken Comments Blood Pressure 130/70 04/09/2006 9:30 AM CDT Pulse - - Temperature - - Respiratory Rate - - Oxygen Saturation - - Inhaled Oxygen Concentration - - Weight 51.7 kg (114 lb) 04/09/2006 9:30 AM CDT Height - - Body Mass Index 21.54 10/07/2003 9:30 AM PUBLIC HEALTH PHYSICIAN documented in this encounter Plan of Treatment Upcoming Encounters Date Type Department Care Team (Late st Contact Info) Description 12/29/2024 11:20 AM CDT Office Visit [facility] Primary Care [address] [place] [address] Alfredo Clark MD [address] [place] [address] [address] [place] [address] documented as of this encounter Visit Diagnoses Not on filedocumented in this encounter Care Teams Dictating Transcribing Machine Servicer Relationship Specialty Start Date End Date Alfredo Clark MD PCP - General 11/24/07 documented as of this encounter
--- OUTSIDE RECORDS SUMMARY | 2024-11-29 14:59 | XMS_ITS | Encounter Summary ---
Author Organization [facility] Address [address] [place] [address] Care Team Providers Care Casino Enforcement Agent Name Role Phone Vu Garcia MD Primary Care Provider [phone] Encounter Details Date Type Department Care Team (Late st Contact Info) Description 02/10/2007 Orders Only [facility] Internal Medicine [address] [address] Vu Garcia MD [address] [place] [address] Social History Tobacco Use Types Packs/Day Years Used Date Smoking Tobacco: Never Assessed Comments Unknown Sex and Gender Information Value Date Recorded Sex Assigned at Not on file Legal Sex Female 3:04 AM LEAD SOFTWARE ENGINEER Gender Identity Not on file Sexual Orientation Not on file documented as of this encounter Progress Notes * Vu Garcia MD - 12/31/2007 8:05 AM CDT CENTRAL TEST SCHEDULING DATE: FEB 10, 2007 Note created by: Taylor Guerrero E 10:29 a Patient Name : AYESHA MCCABE [address]: [address] [place] [address] D.O.B: 1935 SSN: [id number] Parent/Guardian if applicable: Patient Insurance: MEDICARE ID#: [id number] Group#: ORDER(S) #: [id number] bone density [facility] sending report 03-07-07 BEST TO CALL CELL. [phone] or w [phone] BEST TIME TO CALL: ANYTIME. MAY WE LEAVE MESSAGE AT THAT NUMBER: YES, LEAVE MESSAGE. PLEASE SCHEDULE THE APPOINTMENT AT THE FOLLOWING LOCATION: [facility] [phone]. TEST PRIORITY: 2 - 7 DAYS. SPECIAL SCHEDULING INSTRUCTIONS: needs prep ORDERING PHYSICIAN: VU GARCIA MD OFFICE MENTAL HEALTH NURSE PRACTITIONER & PHONE: Taylor Guerrero E ORDER PRINTED BY: FEB 11, 2007 Jessy Davis K 01:12 p FOR SCHEDULING USE ONLY: FIRST ATTEMPT Date:FEB 13, 2007 Jessy Davis K 07:44 p First Attempt :. no answer @ home #. SECOND ATTEMPT: Date:FEB 14, 2007 Jessy Davis K 07:06 p Second Attempt:. Left Message on Recorder. L/M @ CELL #. LETTER SENT: Date FEB 21, 2007 Jessy Davis K 12:55 p Letter Sent to Patient. FEB 24, 2007 Patti Butterfield M 09:[address] [facility] [phone]. @[id number] APPOINTMENT DATE : 02/27/2007 ( 1045) The appointment was scheduled by Patti Butterfield M at [phone] FEB 24, 2007 Patti Butterfield M 09:49 a Pre-authorization number: MEDICARE--NN FINAL ACTION Spoke with patient. * Vu Garcia MD - 12/31/2007 8:05 AM CDT WEIGHT: 114lbs BLOOD PRESSURE: 140/70 Right Arm Sitting NURSE NAME: Madhuri Low R CHIEF COMPLAINT Patient here for follow up hypertension. HISTORY: HISTORY: 276.7-HYPERKALEMIA stable 401.9-HYPERTENSION, UNSPECIFIED The patient is tolerating the medication. The patient denies chest pain, shortness of breath, dyspnea on exertion, pedal edema, or headache. 733.00-OSTEOPOROSIS No complications noted from the medication presently being used. The patient denies recent worsening of pain and the range of motion remains stable. There has not been any evidence of fractures. 780.79-FATIGUE The patient's malaise and fatigue have worsened. 380.4-CERUMEN IMPACTION dec hearing , both ears ROS: GENERAL: DECREASED ENERGY LEVEL, FEELS FATIGUED. ENDOCRINE: No heat or cold intolerance, no excessive thirst. CARDIAC: No chest pain, palpitations, orthopnea, dyspnea on exertion, or paroxysmal nocturnal dyspnea. RESPIRATORY: No dyspnea, cough, hemoptysis or wheezing. : No frequency, urgency, hematuria or dysuria. GI: No abdominal pain, nausea, vomiting, diarrhea, constipation, melena, or hematochezia. PAST MEDICAL HISTORY: htn, stress FAMILY HISTORY: htn,brother renal carcinoma SOCIAL HISTORY: TOBACCO USE: Has no significant smoking history. 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 PHYSICAL EXAMINATION: CONSTITUTIONAL: GENERAL APPEARANCE: Healthy appearing patient in no distress. EARS, NOSE, MOUTH AND THROAT: EARS: Tympanic membranes shiny without retraction. Canals unremarkable. Hearing grossly normal. ORAL: Inspection of gums, lips, palate, and teeth normal. No scars, lesions, or masses. Oral mucosaunremarkable with non-inflamed posterior pharynx. NECK/THYROID: Trachea midline. No thyroid enlargement, tenderness, [...] induration, obvious subcutaneous nodules or tightening. ASSESSMENT/PLAN: 276.7-HYPERKALEMIA stable, cont monitor 401.9-HYPERTENSION, UNSPECIFIED cont med, home monitor, may add back norvasc LAB ORDERS: Order number: [id number] Test Ordered: CBC W/ DIFFERENTIAL 3150 Order number: [id number] Test Ordered: BASIC METABOLIC PANEL & GFR 1607 Order number: [id number] Test Ordered: TSH 1720 Order number: [id number] Test Ordered: VITAMIN B12 LEVEL 1719 733.00-OSTEOPOROSIS recheck bone dens LAB ORDERS: Order number: [id number] Test Ordered: BONE DENSITY (HIP & SPINE) Sta 780.79-FATIGUE discussed, try med, ongoing MEDICATIONS: WELLBUTRIN SR ORAL TABLET 12 HR 100 MG, 1 Every Day, 30 Dispensed, 3 Fills, status: NEW PRESCRIPTION, 02/10/2007. 380.4-CERUMEN IMPACTION soften, return for lavage RETURN VISIT : Patient instructed to return in 3 months.return end of week or next for ear lavage Electronically Signed by: Vu Garcia MD on Saturday, February 10, 2007 documented in this encounter Plan of Treatment Upcoming Encounters Date Type Department Care Team (Late st Contact Info) Description 12/29/2024 11:20 AM CDT Office Visit [facility] Primary Care [address] [place] [address] Vu Garcia MD [address] [place] [address] [address] [place] [address] documented as of this encounter Visit Diagnoses Not on filedocumented in this encounter Care Teams Casino Enforcement Agent Relationship Specialty Start Date End Date Vu Garcia MD PCP - General 11/24/07 documented as of this encounter
--- OUTSIDE RECORDS SUMMARY | 2024-11-29 14:59 | XMS_ITS | Encounter Summary ---
Author Organization [facility] Address [address] [place] [address] Care Team Providers Care Transmission Operator Name Role Phone Alfredo Clark MD Primary Care Provider [phone] Encounter Details Date Type Department Care Team (Late Contact Info) Description 07/09/2006 Outpatient Historical [facility] Internal Medicine [address] [address] Alfredo Clark MD [address] [place] [address] [address] [place] [address] Social History Tobacco Use Types Packs/Day Years Used Date Smoking Tobacco: Never Assessed Comments Unknown Sex and Gender Information Value Date Recorded Sex Assigned at Not on file Legal Sex Female 3:04 AM TEST CASE DEVELOPER Gender Identity Not on file Sexual Orientation Not on file documented as of this encounter Last Filed Vital Signs Vital Sign Reading Time Taken Comments Blood Pressure 132/74 07/09/2006 9:45 AM TEST CASE DEVELOPER Pulse - - Temperature - - Respiratory Rate - - Oxygen Saturation - - Inhaled Oxygen Concentration - - Weight 52.2 kg (115 lb) 07/09/2006 9:45 AM TEST CASE DEVELOPER Height - - Body Mass Index 21.73 10/07/2003 9:30 AM TEST CASE DEVELOPER documented in this encounter Plan of Treatment Upcoming Encounters Date Type Department Care Team (Late st Contact Info) Description 12/29/2024 11:20 AM CDT Office Visit [facility] Primary Care [address] [place] [address] Alfredo Clark MD [address] [place] [address] [address] [place] [address] documented as of this encounter Visit Diagnoses Not on filedocumented in this encounter Care Teams Transmission Operator Relationship Specialty Start Date End Date Alfredo Clark MD PCP - General 11/24/07 documented as of this encounter
--- OUTSIDE RECORDS SUMMARY | 2024-11-29 14:59 | XMS_ITS | Encounter Summary ---
Author Organization [facility] Address [address] [place] [address] Care Team Providers Care Operator Control Room Name Role Phone Alfredo Clark MD Primary Care Provider Encounter Details Date Type Department Care Team (Late Contact Info) Description 08/01/2006 Orders Only [facility] Internal Medicine [address] [address] Alfredo Clark MD [address] [place] [address] [address] [place] [address] Social History Tobacco Use Types Packs/Day Years Used Date Smoking Tobacco: Never Assessed Comments Unknown Sex and Gender Information Value Date Recorded Sex Assigned at Not on file Legal Sex Female 3:04 AM INSURANCE LOSS CONTROL SURVEYOR Gender Identity Not on file Sexual Orientation Not on file documented as of this encounter Plan of Treatment Upcoming Encounters Date Type Department Care Team (Late st Contact Info) Description 12/29/2024 11:20 AM CDT Office Visit [facility] Primary Care [address] [place] [address] Alfredo Clark MD [address] [place] [address] [address] [place] [address] documented as of this encounter Visit Diagnoses Not on filedocumented in this encounter Care Teams Operator Control Room Relationship Specialty Start Date End Date Alfredo Clark MD PCP - General 11/24/07 documented as of this encounter
--- OUTSIDE RECORDS SUMMARY | 2024-11-29 14:59 | XMS_ITS | Encounter Summary ---
Author Organization [facility] Address [address] [place] [address] Care Team Providers Care Stave Machine Tender Name Role Phone Alfredo Clark MD Primary Care Provider [phone] Encounter Details Date Type Department Care Team (Late Contact Info) Description 02/22/2005 Outpatient Historical [facility] Internal Medicine [address] [address] Alfredo Clark MD [address] [place] [address] [address] [place] [address] Social History Tobacco Use Types Packs/Day Years Used Date Smoking Tobacco: Never Assessed Comments Unknown Sex and Gender Information Value Date Recorded Sex Assigned at Not on file Legal Sex Female 3:04 AM ELECTRONIC WARFARE OFFICER Gender Identity Not on file Sexual Orientation Not on file documented as of this encounter Last Filed Vital Signs Vital Sign Reading Time Taken Comments Blood Pressure 130/80 02/22/2005 10:00 AM CDT Pulse - - Temperature - - Respiratory Rate - - Oxygen Saturation - - Inhaled Oxygen Concentration - - Weight - - Height - - Body Mass Index - - documented in this encounter Plan of Treatment Upcoming Encounters Date Type Department Care Team (Late st Contact Info) Description 12/29/2024 11:20 AM CDT Office Visit [facility] Primary Care [address] [place] [address] Alfredo Clark MD [address] [place] [address] [address] [place] [address] documented as of this encounter Visit Diagnoses Not on filedocumented in this encounter Care Teams Stave Machine Tender Relationship Specialty Start Date End Date Alfredo Clark MD PCP - General 11/24/07 documented as of this encounter
--- OUTSIDE RECORDS SUMMARY | 2024-11-29 14:59 | XMS_ITS | Encounter Summary ---
Author Organization [facility] Address [address] [place] [address] Care Team Providers Care Director Public Name Role Phone Alfredo Clark MD Primary Care Provider [phone] Encounter Details Date Type Department Care Team (Late st Contact Info) Description 05/12/2007 Outpatient Historical [facility] Internal Medicine [address] [address] Alfredo Clark MD [address] [place] [address] [address] [place] [address] Social History Tobacco Use Types Packs/Day Years Used Date Smoking Tobacco: Never Assessed Comments Unknown Sex and Gender Information Value Date Recorded Sex Assigned at Not on file Legal Sex Female 3:04 AM DROP PIT WORKER Gender Identity Not on file Sexual Orientation Not on file documented as of this encounter Last Filed Vital Signs Vital Sign Reading Time Taken Comments Blood Pressure 150/86 05/12/2007 9:30 AM CDT Pulse - - Temperature - - Respiratory Rate - - Oxygen Saturation - - Inhaled Oxygen Concentration - - Weight 50.8 kg (112 lb) 05/12/2007 9:30 AM CDT Height - - Body Mass Index 21.16 10/07/2003 9:30 AM DROP PIT WORKER documented in this encounter Plan of Treatment Upcoming Encounters Date Type Department Care Team (Late st Contact Info) Description 12/29/2024 11:20 AM CDT Office Visit [facility] Primary Care [address] [place] [address] Alfredo Clark MD [address] [place] [address] [address] [place] [address] documented as of this encounter Visit Diagnoses Not on filedocumented in this encounter Care Teams Director Public Relationship Specialty Start Date End Date Alfredo Clark MD PCP - General 11/24/07 documented as of this encounter
--- OUTSIDE RECORDS SUMMARY | 2024-11-29 14:59 | XMS_ITS | Encounter Summary ---
Author Organization [facility] Address [address] [place] [address] Care Team Providers Care Orchestra Leader Name Role Phone Alfredo Clark MD Primary Care Provider [phone] Encounter Details Date Type Department Care Team (Late st Contact Info) Description 12/19/2005 Outpatient Historical [facility] Internal Medicine [address] [address] Alfredo Clark MD [address] [place] [address] [address] [place] [address] Social History Tobacco Use Types Packs/Day Years Used Date Smoking Tobacco: Never Assessed Comments Unknown Sex and Gender Information Value Date Recorded Sex Assigned at Not on file Legal Sex Female 3:04 AM FIELD LABORATORY OPERATOR Gender Identity Not on file Sexual Orientation Not on file documented as of this encounter Last Filed Vital Signs Vital Sign Reading Time Taken Comments Blood Pressure 160/70 12/19/2005 11:30 AM CDT Pulse - - Temperature - - Respiratory Rate - - Oxygen Saturation - - Inhaled Oxygen Concentration - - Weight 52.2 kg (115 lb) 12/19/2005 11:30 AM CDT Height - - Body Mass Index 21.73 10/07/2003 9:30 AM FIELD LABORATORY OPERATOR documented in this encounter Plan of Treatment Upcoming Encounters Date Type Department Care Team (Late st Contact Info) Description 12/29/2024 11:20 AM CDT Office Visit [facility] Primary Care [address] [place] [address] Alfredo Clark MD [address] [place] [address] [address] [place] [address] documented as of this encounter Visit Diagnoses Not on filedocumented in this encounter Care Teams Orchestra Leader Relationship Specialty Start Date End Date Alfredo Clark MD PCP - General 11/24/07 documented as of this encounter
--- OUTSIDE RECORDS SUMMARY | 2024-11-29 14:59 | XMS_ITS | Encounter Summary ---
Author Organization [facility] Address [address] [place] [address] Care Team Providers Care Emergency Registrar Name Role Phone Alfredo Clark MD Primary Care Provider [phone] Encounter Details Date Type Department Care Team (Late st Contact Info) Description 04/19/[address] [facility] Internal Medicine [address] [address] Alfredo Clark MD [address] [place] [address] [address] [place] [address] Social History Tobacco Use Types Packs/Day Years Used Date Smoking Tobacco: Never Assessed Comments Unknown Sex and Gender Information Value Date Recorded Sex Assigned at Not on file Legal Sex Female 3:04 AM OPERATIONAL REVIEW SERGEANT Gender Identity Not on file Sexual Orientation Not on file documented as of this encounter Last Filed Vital Signs Vital Sign Reading Time Taken Comments Blood Pressure 150/70 04/19/2005 9:45 AM CDT Pulse - - Temperature - - Respiratory Rate - - Oxygen Saturation - - Inhaled Oxygen Concentration - - Weight 52.6 kg (116 lb) 04/19/2005 9:45 AM CDT Height - - Body Mass Index 21.92 10/07/2003 9:30 AM OPERATIONAL REVIEW SERGEANT documented in this encounter Plan of Treatment Upcoming Encounters Date Type Department Care Team (Late st Contact Info) Description 12/29/2024 11:20 AM CDT Office Visit [facility] Primary Care [address] [place] [address] Alfredo Clark MD [address] [place] [address] [address] [place] [address] documented as of this encounter Visit Diagnoses Not on filedocumented in this encounter Care Teams Emergency Registrar Relationship Specialty Start Date End Date Alfredo Clark MD PCP - General 11/24/07 documented as of this encounter
--- OUTSIDE RECORDS SUMMARY | 2024-11-29 14:59 | XMS_ITS | Encounter Summary ---
Author Organization [facility] Address [address] [place] [address] Care Team Providers Care Charge Histotechnologist Name Role Phone Alfredo Clark MD Primary Care Provider [phone] Encounter Details Date Type Department Care Team (Late st Contact Info) Description 10/07/2003 Outpatient Historical [facility] Internal Medicine [address] [address] Alfredo Clark MD [address] [place] [address] [address] [place] [address] Social History Tobacco Use Types Packs/Day Years Used Date Smoking Tobacco: Never Assessed Comments Unknown Sex and Gender Information Value Date Recorded Sex Assigned at Not on file Legal Sex Female 3:04 AM SENIOR PRODUCT ENGINEER Gender Identity Not on file Sexual Orientation Not on file documented as of this encounter Last Filed Vital Signs Vital Sign Reading Time Taken Comments Blood Pressure 142/80 10/07/2003 9:30 AM SENIOR PRODUCT ENGINEER Pulse - - Temperature - - Respiratory Rate - - Oxygen Saturation - - Inhaled Oxygen Concentration - - Weight 52.6 kg (116 lb) 10/07/2003 9:30 AM SENIOR PRODUCT ENGINEER Height 154.9 cm (5' 1 ) 10/07/2003 9:30 AM SENIOR PRODUCT ENGINEER Body Mass Index 21.92 10/07/2003 9:30 AM SENIOR PRODUCT ENGINEER documented in this encounter Plan of Treatment Upcoming Encounters Date Type Department Care Team (Late st Contact Info) Description 12/29/2024 11:20 AM CDT Office Visit [facility] Primary Care [address] [place] [address] Alfredo Clark MD [address] [place] [address] documented as of this encounter Visit Diagnoses Not on filedocumented in this encounter Care Teams Charge Histotechnologist Relationship Specialty Start Date End Date Alfredo Clark MD PCP - General 11/24/07 documented as of this encounter
--- OUTSIDE RECORDS SUMMARY | 2024-11-29 14:59 | XMS_ITS | Encounter Summary ---
Author Organization [facility] Address [address] [place] [address] Care Team Providers Care Metal Hanging Supervisor Name Role Phone Alfredo Clark MD Primary Care Provider [phone] Encounter Details Date Type Department Care Team (Late Contact Info) Description 08/25/2007 Outpatient Historical [facility] Internal Medicine [address] [address] Alfredo Clark MD [address] [place] [address] Social History Tobacco Use Types Packs/Day Years Used Date Smoking Tobacco: Never Assessed Comments Unknown Sex and Gender Information Value Date Recorded Sex Assigned at Not on file Legal Sex Female 3:04 AM SAFETY SEALER Gender Identity Not on file Sexual Orientation Not on file documented as of this encounter Plan of Treatment Upcoming Encounters Date Type Department Care Team (Late st Contact Info) Description 12/29/2024 11:20 AM CDT Office Visit [facility] Primary Care [address] [place] [address] Alfredo Clark MD [address] [place] [address] [address] [place] [address] documented as of this encounter Visit Diagnoses Not on filedocumented in this encounter Care Teams Metal Hanging Supervisor Relationship Specialty Start Date End Date Alfredo Clark MD PCP - General 11/24/07 documented as of this encounter
--- OUTSIDE RECORDS SUMMARY | 2024-11-29 14:59 | XMS_ITS | Encounter Summary ---
Author Organization [facility] Address [address] [place] [address] Care Team Providers Care Insurance Actuary Name Role Phone Alfredo Clark MD Primary Care Provider [phone] Reason for Visit * Reason Comments Patient Communication Encounter Details Date Type Department Care Team (Late st Contact Info) Description 07/01/2024 Telephone [facility] Primary Care [address] [place] [address] [place] [address] [place] [address] Alfredo Clark MD [address] [place] [address] [place] [address] [place] [address] Patient Communication Social History Tobacco Use Types Packs/Day Years Used Date Smoking Tobacco: Never Smokeless Tobacco: Never Alcohol Use Standard Drinks/Week Comments Yes 3 (1 standard drink = 0.6 oz pure alcohol) occasional wine WITH DINNER 2-3 X Feeling Safe Answer Date Recorded Within the last year, have y ou been afraid of your partner or ex-partner? No 03/20/2019 Within the last year, have y ou been humiliated or emotionally abused in other ways by your partner or ex-partner? No Within the last year, have y ou been kicked, hit, slapped, or otherwise physically hurt by your partner or ex-partner? No 03/20/2019 Within the last year, have y ou been raped or forced to have any kind of sexual activity by your partner or ex-partner? No 03/20/2019 Social Connections Answer Date Recorded In a typical week, how many times do you talk on the phone with family, friends, or neighbors? More than three times a week 03/20/2019 How often do you get togethe r with friends or relatives? More than three times a week 03/20/2019 How often do you attend chur ch or spiritism services? More than 4 times per year 03/20/2019 Do you belong to any clubs o r organizations such as buddhism groups, unions, fraternal or athletic groups, or school groups? Yes 03/20/2019 How often do you attend meet ings of the clubs or organizations you belong to? More than 4 times per year 03/20/2019 Are you , , di vorced, , never , or living with a partner? 03/20/2019 Financial Resource Strain Answer Date R ecorded How hard is it for you to pa y for the very basics like food, housing, medical care, and heating? Not hard at all 12/14/2021 Food Insecurity Answer Date Recorded In the past 12 months, have you worried that your food would run out before you had money to buy more? Never true 12/14/2021 In the past 12 months, did y ou run out of food and didn't have money to buy more? Never true 12/14/2021 Transportation Needs Answer Date Record ed In the past 12 months, has l ack of transportation kept you from medical appointments or from getting medications? 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 Topic: Patient or Caregiver Communication Request >> Jul 01, 2024 8:47 AM Yemi Hanna wrote: Patient or Caregiver requesting that a message be sent to Care Team Caller: Ayesha Mccabe Patient/Caregiver Callback Number: [phone] (home) Call Notes: Pt is reporting BP readings and wants to inform Dr. Clark that she will complete bloodwork this week. 06/22 - 128/72 06/23 - 134/64 06/24 - 124/63 06/25 - 129/63 06/26 - 165/83 06/27 - 117/64 AM, 139/66 PM 06/28 - 135/64 AM, 130/60 PM 06/29 - 124/64 AM, 148/64 PM 06/30 - 138/68 07/01 - 168/63 OR BUSINESS ANALYST documented in this encounter Plan of Treatment Upcoming Encounters Date Type Department Care Team (Late st Contact Info) Description 12/29/2024 11:20 AM CDT Office Visit [facility] Primary Care [address] [place] [address] Alfredo Clark MD [address] [place] [address] [place] [address] documented as of this encounter Visit Diagnoses Not on filedocumented in this encounter Care Teams Insurance Actuary Relationship Specialty Start Date End Date Alfredo Clark MD PCP - General 11/24/07 documented as of this encounter
--- OUTSIDE RECORDS SUMMARY | 2024-11-29 14:59 | XMS_ITS | Encounter Summary ---
Author Organization [facility] Address 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 Gender Identity Not on file Sexual Orientation Not on file documented as of this encounter Last Filed Vital Signs Vital Sign Reading Time Taken Comments Blood Pressure 132/70 01/13/2004 9:30 AM CDT Pulse - - Temperature - - Respiratory Rate - - Oxygen Saturation - - Inhaled Oxygen Concentration - - Weight 53.1 kg (117 lb) 01/13/2004 9:30 AM CDT Height - - Body Mass Index 22.11 10/07/2003 9:30 AM BUTTER MELTER documented in this encounter Plan of Treatment Upcoming Encounters Date Type Department Care Team (Late st Contact Info) Description 12/29/2024 11:20 AM CDT Office Visit [facility] Primary Care [address] [place] [address] Alfredo Clark MD [address] [place] [address] [address] [place] [address] documented as of this encounter Visit Diagnoses Not on filedocumented in this encounter Care Teams Caddie Relationship Specialty Start Date End Date Alfredo Clark MD PCP - General 11/24/07 documented as of this encounter
--- OUTSIDE RECORDS SUMMARY | 2024-11-29 14:59 | XMS_ITS | Encounter Summary ---
Author Organization [facility] Address [address] [place] [address] Care Team Providers Care Stock Supervisor Name Role Phone Alfredo Clark MD Primary Care Provider [phone] Encounter Details Date Type Department Care Team (Late Contact Info) Description 03/13/2007 Orders Only [facility] Internal Medicine [address] [address] Alfredo Clark MD [address] [place] [address] [address] [place] [address] Social History Tobacco Use Types Packs/Day Years Used Date Smoking Tobacco: Never Assessed Comments Unknown Sex and Gender Information Value Date Recorded Sex Assigned at Not on file Legal Sex Female 3:04 AM PULLER THROUGH Gender Identity Not on file Sexual Orientation Not on file documented as of this encounter Plan of Treatment Upcoming Encounters Date Type Department Care Team (Late st Contact Info) Description 12/29/2024 11:20 AM CDT Office Visit [facility] Primary Care [address] [place] [address] Alfredo Clark MD [address] [place] [address] [address] [place] [address] documented as of this encounter Visit Diagnoses Not on filedocumented in this encounter Care Teams Stock Supervisor Relationship Specialty Start Date End Date Alfredo Clark MD PCP - General 11/24/07 documented as of this encounter
--- OUTSIDE RECORDS SUMMARY | 2024-11-29 14:59 | XMS_ITS | Encounter Summary ---
Author Organization [facility] Address 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 Sex Female 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 STATISTICIAN Gender Identity Not on file Sexual Orientation Not on file documented as of this encounter Last Filed Vital Signs Vital Sign Reading Time Taken Comments Blood Pressure 170/80 01/11/2005 10:00 AM CDT Pulse - - Temperature - - Respiratory Rate - - Oxygen Saturation - - Inhaled Oxygen Concentration - - Weight 52.6 kg (116 lb) 01/11/2005 10:00 AM CDT Height - - Body Mass Index 21.92 10/07/2003 9:30 AM RESEARCH STATISTICIAN documented in this encounter Plan of Treatment Upcoming Encounters Date Type Department Care Team (Late st Contact Info) Description 12/29/2024 11:20 AM CDT Office Visit [facility] Primary Care [address] [place] [address] Alfredo Clark MD [address] [place] [address] [address] [place] [address] documented as of this encounter Visit Diagnoses Not on filedocumented in this encounter Care Teams Message Clerk Relationship Specialty Start Date End Date Alfredo Clark MD PCP - General 11/24/07 documented as of this encounter
--- OUTSIDE RECORDS SUMMARY | 2024-11-29 14:59 | XMS_ITS | Encounter Summary ---
Author Organization [facility] Address [address] [place] [address] Care Team Providers Care Project Design Engineer Name Role Phone Alfredo Clark MD Primary Care Provider [phone] Reason for Visit * Reason Comments Clinical Consult Before Scheduling Encounter Details Date Type Department Care Team (Late st Contact Info) Description 10/30/2024 Telephone [facility] Primary Care [address] [place] [address] Alfredo Clark MD [address] [place] [address] [place] [address] [place] [address] Clinical Consult Before Scheduling Social History Tobacco Use Types Packs/Day Years [...] 03/20/2019 How often do you attend chur or shinto services? 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 Topic: Symptomatic Care >> Oct 30, 2024 10:38 AM Kandace Zimmerman wrote: Caller has new symptoms and is seeking care. Age Range/Symptom: Adult: 18+ - Urinary & Bladder Infection - burning sensation with urination,and frequency with urination since yesterday. She is asking for medication to be sent to her pharm verses being seen. Dr Clark has prescribed something in ythe past that has helped through the last UTI [id number] [place], [place] - [address] [facility] [address] [facility] [address] Does patient have any of the following other urgent symptoms: No urgent symptoms requiring warm call transfer Were you able to schedule appointment within patient's desired timeframe? No [place] community is the [place] in? [place] Unable to schedule appointment within patient's desired timeframe. Patient declined all other options for immediate care, preferring to schedule first available. Scheduled appointment for n/a. If this is not clinically appropriate, please contact patient. documented in this encounter Plan of Treatment Upcoming Encounters Date Type Department Care Team (Late st Contact Info) Description 12/29/2024 11:20 AM CDT Office Visit [facility] Primary Care [address] [place] [address] Alfredo Clark MD [address] [place] [address] [address] [place] [address] documented as of this encounter Visit Diagnoses Not on filedocumented in this encounter Care Teams Project Design Engineer Relationship Specialty Start Date End Date Alfredo Clark MD PCP - General 11/24/07 documented as of this encounter
--- OUTSIDE RECORDS SUMMARY | 2024-11-29 15:00 | XMS_ITS | Patient Health Record ---
Author Organization [facility] Address [address] [facility] [address] [place], [place] [address] Care Team Providers Care Cold Mill Inspector Name Role Phone VU GARCIA MD Primary Care Provider Unavaila Santhosh De La Torre Unavailable [phone] REASON FOR REFERRAL No Information MEDICATIONS Medication SIG (Take, Route, Frequency, Duration) Notes Start Date End Date Status Valsartan/HCTZ 800 mg/12.5 mg 1 tablet once a day Active amlodipine besylate 5 mg one a a day Active Vitamin C 1000 mg orally OD Ac tive Vitamin B12 1000 mcg orally OD Active omeprazole 20 mg 1 cap(s) orally once a day Active pravastatin 40 mg 1 tab(s) orally once a day Active Metoprolol Succinate ER 50 mg 1 tab(s) orally once a day Active SOCIAL HISTORY Tobacco Use: Social History Observation Description Date Details (start date - stop date) Never Smoker NA - NA Sex Assigned At : Social History Observation Description Sex Assigned At Unknown Tobacco Use: Question Answer Notes Smoking Status nonsmoker PROBLEMS Problem Type ICD Code Onset Dates Problem Status W/U Status Risk SNOMED Code Notes Problem Polyarthralgia (M25.50) Active confirmed 65392622 Problem Myalgia (M79.1) Active confirmed 185035 01 Problem Polymyalgia rheumatica (M35.3) Active confirmed 19533537 Problem Pain, joint, shoulder, right (M25.511) Active confirmed 07890172509630787 Problem Right hip pain (M25.551) Active confirmed 369026801852971 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 (Z79.52) Active confirmed 052096568445601 Problem Essential (primary) hypertension (I10) Active confirmed Essential hypertension (98718232) Problem Age-related osteoporosis without current pathological fracture (M81.0) Active confirmed 30185223 PLAN OF TREATMENT Pending Test Test Name Order Date X ray : Hip, right- outside order 2017 X ray : Shoulder, right- outside order 0 12/13/2017 -Xray slip given 12/13/2017 Future Test Test Name Order Date Sed Rate - [place]gren 05/22/2018 C-Reactive Protein, Quant 05/22/2018 Lab slip given 05/22/2018 Sed Rate - [place] 08/19/2018 C-Reactive Protein, Quant 08/19/2018 Lab slip given 08/19/2018 Insurance Providers Payer Name Payer Address Payer Phone Subscriber Number Group Number Insured Name Patient Relationship to Insured Coverage Start Date Coverage End Date [facility] [address] [place] [phone] [id number] Ayesha Mccabe Self - patient is the insured 0 MEDICAL (GENERAL) HISTORY Medical History History ICD Code cataracts indigestion high blood pressure stomach pain/cramps ulcers Lack of bladder control anxiety Surgical History Surgery Date(Month/Year)
--- OUTSIDE RECORDS SUMMARY | 2024-11-29 15:00 | XMS_ITS | Clinical Summary ---
Author Organization [facility] Address [address] [place] [address] Care Team Providers Care Dealer Sales Rep Name Role Phone Alfredo Clark MD Primary Care Provider [phone] Allergies No known active allergies Medications CITRACAL + D PO Take by mouth daily. Active cyanocobalamin 1,000 mcg Oral Tab Take 1 Tab by mouth daily. 90 Tab 3 0 Active aspirin (ECOTRIN EC) 81 mg Tablet, Delayed Release (E.C.) Take 1 Tab by mouth daily. 30 Tab 3 4 Active Lacto.acidophilus -Bif.animalis 5 billion cell Capsule, Sprinkle Take by mouth daily. 7 Active cholecalciferol, Vitamin D3, 2,000 unit Tablet Take by mouth daily. Active denosumab (PROLIA) 60 mg/mL Syringe 60mg inject every 6 months. 1 mL 1 9 Active celecoxib (CeleBREX) 200 mg capsule Take 1 Capsule (200 mg) by mouth daily. 90 Capsule 3 0 Active losartan (COZAAR) 50 mg tabletIndications :Essential hypertension take 1 tablet by mouth every day 90 Tablet 3 3 Active pravastatin (PRAVACHOL) 40 mg tablet TAKE 1 TABLET BY MOUTH EVERY DAY LATE IN THE DAY 90 Tablet 3 4 Active levothyroxine 25 mcg tablet take 1 tablet by mouth every day 90 Tablet 3 4 Active losartan (COZAAR) 25 mg tablet Take 1 Tablet (25 mg) by mouth daily. 100 Tablet 3 4 Active metoprolol succinate (TOPROL XL) 100 mg Extended Release 24 hour tablet TAKE 1 TABLET BY MOUTH EVERY DAY 100 Tablet 3 4 Active amLODIPine (NORVASC) 5 mg tablet TAKE 1 TABLET BY MOUTH EVERY DAY 90 Tablet 3 5 Active famotidine (PEPCID) 20 mg tablet Take 1 Tablet (20 mg) by mouth 2 times daily. 60 Tablet 2 5 01/21/20 25 Active nitrofurantoin (MACROBID) 100 mg capsule Take 1 Capsule (100 mg) by mouth 2 times daily. 10 Capsule 5 Active Active Problems Patient Care Coordination No te Formatting of this note migh t be different from the original. [id number] 12/13/23 Problem Noted Date Diagnosed Date Basal cell carcinoma 07/16/2017 GERD (gastroesophageal reflux disease) 5 Osteoporosis 03/16/2015 Hypothyroidism 05/31/2011 Other vitamin B12 deficiency anemia 08/25/2007 Diverticulosis of colon (without mention of hemo rrhage) 06/23/2007 Osteoarthrosis, unspecified whether generalized or localized, unspecified site 06/23/2007 Hyperpotassemia 04/09/2006 Adjustment disorder with anxiety 01/11/2005 Essential hypertension 10/07/2003 Resolved Problems Problem Noted Date Diagnosed Date Resolved Date OSTEOPOROSIS NOS 10/07/2003 06/12/2012 Encounters Date Type Department Care Team Description 10/30/[address] [phone] Alfredo Clark MD Information 10/30/[address] [place] [phone] Alfredo Clark MD Clinical Consult Before Scheduling 10/23/2024 Refill [facility] [address] [address] [facility] [address] [address] [place] [phone] Phill Beatty DO 10/22/2024 12:45 PM CDT Office Visit [facility] [place] [address] [facility] [address] [address] [place] [phone] Phill Beatty DO Dysphagia, unspecified type (Primary Dx); Hiatal hernia; Gastroesophageal reflux disease, unspecified whether esophagitis present; Pulmonary hypertension ([facility]/HCC) 09/30/2024 External Device Data ST[facility] ABSTRACTION Provider, Abstract 09/08/2024 External Device Data [facility] ABSTRACTION Provider, Abstract 09/02/2024 External Device Data [facility] ABSTRACTION Provider, Abstract 09/02/2024 External Device Data [facility] ABSTRACTION Provider, Abstract from Last 3 Months Immunizations Immunization Administration Dates Next Due (ADACEL/BOOSTRIX)(10 YR UP) TDAP VACCINE, 0.5ML, IM 12/30/2021,12/11/2012 (AREXVY)(60 YR UP) RSV, LA MBINANT, PROTEIN SUBUNIT RSVPREF, ADJUVANT RECONSTITUTED, 0.5 ML, PF 05/06/2023 (PFIZER)(12 YR UP) COVID-19 VACCINE - EMERGENCY USE AUTHORIZATION, MRNA, [id number](PF) 30 MCG/0.3 ML IM SUSP 07/24/2021,10/14/2020,10/07/2020 (PNEUMOVAX 23)(50 YRS UP) PN EUMOCOCCAL POLYSACCHARIDE (PPV23) 0.5 ML, IM 03/20/2019,08/17/2008,05/05/2001 (PREVNAR 13)(6 WKS UP) PNEUM OCOCCAL CONJUGATE (PCV13) 0.5 ML, IM 03/05/2014 (Pfizer Bivalent)(5-11 Yrs) COVID-19 Vaccine - Emergency Use Authorization, MRNA, Juvencio(Pf) 10 Mcg/0.2 Ml Im SuspP 06/26/2022 (SHINGRIX)(50 YRS UP) ZOSTER VACCINE RECOMBINANT, 0.5 ML, IM 01/14/2022,06/20/2020 (TDVAX)(7 YRS UP) TETANUS AN D DIPHTHERIA TOXOIDS, ADSORBED (2 LF OF TETANUS TOXOID AND 2 LF OF DIPHTHERIA TOXOID), 0.5ML (PF), IM 09/08/2002 INFLUENZA VACCINE HIGH DOSE QUADRIVALENT 65 YR UP PF IM 06/11/2023,04/12/2022,06/15/2021 INFLUENZA VACCINE HIGH DOSE TRIVALENT SPLIT VIRUS, (65 YR UP), 0.5ML (PF), IM 06/09/2024 Influenza Seasonal Unspecifi ed Formulation IM 06/12/2014,06/11/2013,06/07/2012,05/26,06/12/2010,06/12/2009,05/21/2008 Influenza Vaccine High Dose 65+ Yrs IM 1 ,05/12/2019,04/08/2018,06/10,06/19/2016 Influenza Vaccine Nasal 05/27/2015 Family History Medical History Relation Name Comments Other Brother 1 Diabetes Brother 2 Heart Disease Brother 2 Breast Cancer Mother Cancer Mother Colon Cancer Neg Hx Relation Name Status Comments Brother 1 Brother 2 Alive Brother 3 Alive Father Mother Social History Tobacco Use Types Packs/Day Years Used Date Smoking Tobacco: Never Smokeless Tobacco: Never Tobacco Cessation:Counseling Given: Not Answered Alcohol Use Standard Drinks/Week Comments Yes 3 [...] often do you attend chur ch or bahai services? 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 Gender Identity Not on file Sexual Orientation Not on file Occupation Industry Job Start Date Job End Date RETIRED Not on file Not on file Not on file Last Filed Vital Signs Vital Sign Reading Time Taken Comments Blood Pressure 120/68 10/22/2024 12:57 PM CDT Pulse 69 10/22/2024 12:57 PM CDT Temperature 36.7 C (98 F) 02/04/2024 11:27 AM CDT Respiratory Rate 18 10/22/2024 12:57 PM CDT Oxygen Saturation 94% 06/16/2024 10:49 AM DRAFTER ENGINEERING Inhaled Oxygen Concentration - - Weight 46.3 kg (102 lb) 10/22/2024 12:57 PM CDT Height 152.4 cm (5') 06/16/2024 10:49 AM DRAFTER ENGINEERING Body Mass Index 19.92 06/16/2024 10:49 AM DRAFTER ENGINEERING Plan of Treatment Upcoming Encounters Date Type Department Care Team (Late st Contact Info) Description 12/29/2024 11:20 AM CDT Office Visit [facility] Primary Care [address] [place] [address] Alfredo Clark MD [address] [facility] [address] [place] [address] Health Maintenance Due Date Last Done Comments BREAST CANCER SCREENING 12/27/2023 12/27/19 23, 12/26/2022, 11/21/2018, Additional history exists COVID-19 Vaccine (2023-2 5 season) 2024 06/26/2022, 07/24/2021, 10/14/2020, Additional history exists [place] Preventative Visit/Annual Wellness Visit 08/12/2024 12/13/2023, 12/17/2022, 12/14/2021, Additional history exists OSTEOPOROSIS SCREENING 07/27/2026 , 01/20/2018, 03/15/2015, Additional history exists DTAP/TDAP/TD VACCINES (3 - T d or Tdap) 12/31/2031 12/30/2021, 12/11/2012, 09/08/2002 PNEUMOCOCCAL VACCINE 50+ YEARS Completed 0 03/20/2019, 03/05/2014, 08/17/2008, Additional history exists ZOSTER VACCINE Completed 01/14/2022, 06/20/2020 RSV VACCINE (60+ or ) Completed 05/06/2023 INFLUENZA VACCINE Completed 06/09/2024, , 04/12/2022, Additional history exists Procedures Procedure Name Priority Date/Time Associated Diagnosis Comments MAMMO SCREEN BILAT W OR WO CAD Routine 12/26/2022 Visit for screening mammogram XR DEXA BONE DENSITY AXIAL 1 OR MORE SITES Routine 07/27/2021 10:44 AM DRAFTER ENGINEERING Age-related osteoporosis without current pathological fracture from Last 3 Months or Most Recently Relevant to Health Maintenance Results * MAMMO SCREEN BILAT W OR WO CAD (12/26/2022) Anatomical Region Laterality Modality Breast Bilateral Mammography us Alfredo Clark MD MAMMO ORDERABLES Final Result * XR DEXA BONE DENSITY AXIAL 1 OR MORE SITES (07/27/2021 10:44 AM DRAFTER ENGINEERING) Anatomical Region Laterality Modality Digital Radiogra phy 07/27/2021 10:4 5 AM DRAFTER ENGINEERING Narrative 07/27/2021 11:16 AM DRAFTER ENGINEERING XR DEXA BONE DENSITY AXIAL 1 OR MORE SITES DATE: 07/27/2021 10:44 AM HISTORY: 86 years old Female with post menopausal symptoms. PROCEDURE: Planar images of the lumbar spine, forearm and hip(s) using a [employer] DEXA scanner for bone mineral density determination (BMD). Absolute bone mineral density measurements (in gm/cm^2) are available on the original PACS report. Comparison is made with the prior bone density performed 01/20/2018 FINDINGS: Lumbar Spine (L1-L4) T-score: -2.0 : -10.2% change Left femoral neck T-score: -3.0 : +0.2% change Right femoral neck T-score: -2.8 : -4.1% change Left Radius 33% T-score: -4.2 : -8.6% change Comments: None IMPRESSION Osteoporotic bone mineral density. STATISTICAL CHANGE: Significant decrease in bone mineral density of the lumbar spine since the prior study. A statistically significant change is defined as a change of greater than 2.5 standard deviations in the least significant difference from the prior study. Least significant differences are defined as follows: Lumbar spine: +/- 0.010 g/cm2 Femoral neck: +/- 0.014 g/cm2 Forearm radius 33%: +/- 0.020 g/cm2 DEFINITIONS: Normal: T-score above -1.0 Osteopenia T-score less than -1.0 and above -2.5 Osteoporosis: T-score < -2.5 FRAX FRACTURE RISK ASSESSMENT: Risk factors: Glucocorticoid's, rheumatoid arthritis 10 Year Probability Of Fracture -Major Osteoporotic: 34.7% -Hip: 18.3% -Comparison population: [place], A major osteoporotic fracture is defined as a fracture of the spine, forearm, hip or shoulder. FOLLOW-UP RECOMMENDATIONS: Patients without high risk factors for osteoporosis: T-score -1.0 to -1.5 - Consider repeat BMD in 5-10 years T-score -1.5 to -2.0 - Consider repeat BMD in 3-5 years T-score -2.0 to - 2.5 - Consider repeat BMD every 2 years Patients on treatment for osteoporosis: 1-2 years after initiation of treatment and every 2 years [address] Ranjit Aviles DO DICTATION LOCATION: Location 1 - [facility] Procedure Note Ranjit Aviles DO - 07/27/2021 XR DEXA BONE DENSITY AXIAL 1 OR MORE SITES DATE: 07/27/2021 10:44 AM HISTORY: 86 years old Female with post menopausal symptoms. PROCEDURE: Planar images of the lumbar spine, forearm and hip(s) using a [employer] DEXA scanner for bone mineral density determination (BMD). Absolute bone mineral density measurements (in gm/cm^2) are available on the original PACS report. Comparison is made with the prior bone density performed 01/20/2018 FINDINGS: Lumbar Spine (L1-L4) T-score: -2.0 : -10.2% change Left femoral neck T-score: -3.0 : +0.2% change Right femoral neck T-score: -2.8 : -4.1% change Left Radius 33% T-score: -4.2 : -8.6% change Comments: None IMPRESSION Osteoporotic bone mineral density. STATISTICAL CHANGE: Significant decrease in bone mineral density of the lumbar spine since the prior study. A statistically significant change is defined as a change of greater than 2.5 standard deviations in the least significant difference from the prior study. Least significant differences are defined as follows: Lumbar spine: +/- 0.010 g/cm2 Femoral neck: +/- 0.014 g/cm2 Forearm radius 33%: +/- 0.020 g/cm2 DEFINITIONS: Normal: T-score above -1.0 Osteopenia T-score less than -1.0 and above -2.5 Osteoporosis: T-score < -2.5 FRAX FRACTURE RISK ASSESSMENT: Risk factors: Glucocorticoid's, rheumatoid arthritis 10 Year Probability Of Fracture -Major Osteoporotic: 34.7% -Hip: 18.3% -Comparison population: [place], A major osteoporotic fracture is defined as a fracture of the spine, forearm, hip or shoulder. FOLLOW-UP RECOMMENDATIONS: Patients without high risk factors for osteoporosis: T-score -1.0 to -1.5 - Consider repeat BMD in 5-10 years T-score -1.5 to -2.0 - Consider repeat BMD in 3-5 years T-score -2.0 to - 2.5 - Consider repeat BMD every 2 years Patients on treatment for osteoporosis: 1-2 years after initiation of treatment and every 2 years [address] Ranjit Aviles, DICTATION LOCATION: Location 1 - [facility] Alfredo Clark MD DIAGNOSTIC IMAGING ORDERABLES Final Result from Last 3 Months or Most Recently Relevant to Health Maintenance Insurance [employer] PPO MCR RX [employer]ER[employer] Medicare Part D Advance Directives For more information, please contact: [phone] * Full Code (Latest Code Status on File) Date Activated Date Inactivated Comments 08/29/2021 12:01 PM 08/29/2021 3:04 PM * Full Code Date Activated Date Inactivated Comments 01/31/2018 2:54 PM 02/02/2018 2:02 AM * Full Code Date Activated Date Inactivated Comments 07/17/2013 12:30 PM 07/17/2013 4:05 PM Care Teams Dealer Sales Rep Relationship Specialty Start Date End Date Alfredo Clark MD [facility] - General 11/24/07
--- OUTSIDE RECORDS SUMMARY | 2024-11-29 15:00 | XMS_ITS | Encounter Summary ---
Author Organization [facility] Address [address] [place] [address] Care Team Providers Care Curing Press Operator Name Role Phone Alfredo Clark MD Primary Care Provider Reason for Visit * Reason Comments Clinical Consult Before Scheduling Encounter Details Date Type Department Care Team (Late st Contact Info) Description 04/03/2024 Telephone [facility] Primary Care [address] [place] [address] Alfredo Clark MD [address] [place] [address] [place] [address] [place] [address] Clinical Consult Before Scheduling Social [...] How often do you attend chur or church services? 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 Topic: Symptomatic Care >> Apr 03, 2024 8:41 AM Zaida Hamm wrote: Caller has new symptoms and is seeking care. Age Range/Symptom: Adult: 18+ - Urinary & Bladder Infection Does patient have any of the following other urgent symptoms? No urgent symptoms requiring warm call transfer Caller Name: Ayesha Mccabe Callback Number: [phone] (home) Call Notes: burning with urination, frequency-Patient states her symptoms started 3 days ago. She is unable to come in for an appointment due to transportation. She is wanting to know if PCP will prescribe medication. The patient's preferred pharmacy is [id number] {Patient Access Instructions Verify in Consumer View if the Clinic offers Walk In hours. If no walk in hours or patient prefers to schedule, then schedule appointment within 24 - 48 hours with Clinic. Search Team based scheduling for SAME DAY [166] Search Team based scheduling for OFFICE VISIT ESTABLISHED [130] Search Team based scheduling for VIDEO VISIT [674] Was walk in/schedule recommendation accepted and completed? No [place] Unable to schedule appointment within patient's desired timeframe. Scheduled appointment for N/A. If this is not clinically appropriate, please contact patient. documented in this encounter Plan of Treatment Upcoming Encounters Date Type Department Care Team (Late st Contact Info) Description 12/29/2024 11:20 AM CDT Office Visit [facility] Primary [facility] [address] [place] [address] Alfredo Clark MD [address] [place] [address] [address] [place] [address] documented as of this encounter Visit Diagnoses Not on filedocumented in this encounter Care Teams Curing Press Operator Relationship Specialty Start Date End Date Alfredo Clark MD PCP - General 11/24/07 documented as of this encounter
--- OUTSIDE RECORDS SUMMARY | 2024-11-29 15:00 | XMS_ITS | Encounter Summary ---
Author Organization [facility] Address [address] [place] [address] Care Team Providers Care Director Of Teenage Activities Name Role Phone Alfredo Clark MD Primary Care Provider [phone] Reason for Visit * Reason Comments Provider Call Information Encounter Details Date Type Department Care Team (Late st Contact Info) Description 06/15/2024 Telephone [facility] Primary Care [address] [place] [address] Alfredo Clark MD [address] [place] [address] [place] [address] [place] [address] Provider Call; Information Social History Tobacco Use Types Packs/Day Years [...] often do you attend chur ch or gnosticist services? 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 Topic: Patient or Caregiver Communication Request >> Jun 17, 2024 9:39 AM Colleen Ren wrote: Patient or Caregiver requesting that a message be sent to Care Team Caller: [facility] [employer] Patient/Caregiver Callback Number: [phone] Call Notes: Asking if procedure code for endoscopy can be given to them due to patient wanting to know coverage. Stating that code R1310 was given to patient, but [facility] stated code doesn't match anything in their records. Stated theres no way to contact them personally, but patient can be reachedand code can be given to patient. Please advise. [employer] * Telephone Encounter - Otilia Alonzo LPN - 06/16/2024 11:29 AM CST Unable to return call no reference number provided. [employer] * Telephone Encounter - Otilia Alonzo LPN - 06/15/2024 9:58 AM CST Did anybody take this call? [employer] * Telephone Encounter - Christo Collins - 06/15/2024 9:20 AM CST Copied from [facility] #[id number]. Topic: Jtgvglud-Lq-Zvtxilol Call >> Jun 15, 2024 9:18 AM Christo Zimmerman wrote: Caller is requesting to speak with Clinical Care Team. Caller Name: [employer] insurance Callback Number: [phone] Clinician Type: Other healthcare professional not listed above Call Notes: Requesting to speak with a nurse regarding a code. Is this addressing an immediate patient care need? Yes Transferred to PCN line and pcn answered call. [employer] documented in this encounter Plan of Treatment Upcoming Encounters Date Type Department Care Team (Late st Contact Info) Description 12/29/2024 11:20 AM CDT Office Visit [facility] [address] [place] [phone] Alfredo Clark MD [address] [place] [address] [address] [place] [phone] documented as of this encounter Visit Diagnoses Not on filedocumented in this encounter Care Teams Director Of Teenage Activities Relationship Specialty Start Date End Date Alfredo Clark MD PCP - General 11/24/07 documented as of this encounter
--- OUTSIDE RECORDS SUMMARY | 2024-11-29 15:00 | XMS_ITS | Encounter Summary ---
Author Organization [facility] Address [address] [place] [address] Care Team Providers Care Sign Builder Supervisor Name Role Phone Alfredo Clark MD Primary Care Provider [phone] Reason for Visit * Reason Comments Question Information Encounter Details Date Type Department Care Team (Late st Contact Info) Description 12/30/2023 Telephone [facility] Primary Care [address] [place] [address] [place] [address] Alfredo Clark MD [address] [place] [address] [place] [address] [place] [address] Question; Information Social History Tobacco Use Types Packs/Day [...] often do you attend chur ch or faith services? 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 Call disconnected. Pt needs to provide a fax numberfor ECG order and lab order to go to. * Telephone Encounter - Caroline Alvarado - 12/30/2023 11:26 AM CDT Copied from [facility] #[id number]. Topic: Patient or Caregiver Communication Request >> December 30, 2023 11:22 AM Caroline Da Silva wrote: Patient or Caregiver requesting advice Caller: Ayesha Mccabe Patient/Caregiver Callback Number: [phone] (home) Call Notes: [facility] [phone] * Telephone Encounter - Otilia Alonzo LPN - 12/30/2023 11:14 AM CDT Pt advised to provide operable fax numbers for both departments and contact numbers so orders can be sent. Caller placed on hold while pt found numbers. Call disconnected. * Telephone Encounter - Rossy Oliveira PCA - 12/30/2023 11:07 AM CDT Copied from [facility] #[id number]. Topic: Patient or Caregiver Communication Request >> December 30, 2023 11:05 AM Rossy Burden wrote: Patient or Caregiver insisting that a message be sent to Care Team Caller: Ayesha Mccabe Patient/Caregiver Callback Number: [phone] (home) Call Notes: Patient would like to know if her orders for an echocardiogram and prolia shot can be sent to [facility], she states they are in network and she would like to go there so shedoesn't have to drive all the way to [place], requesting callback documented in this encounter Plan of Treatment Upcoming Encounters Date Type Department Care Team (Late st Contact Info) Description 12/29/2024 11:20 AM CDT Office Visit [facility] Primary Care [address] [place] [address] Alfredo Clark MD [address] [place] [address] [place] [address] [place] [address] documented as of this encounter Visit Diagnoses Not on filedocumented in this encounter Care Teams Sign Builder Supervisor Relationship Specialty Start Date End Date Alfredo Clark MD PCP - General 11/24/07 documented as of this encounter
--- OUTSIDE RECORDS SUMMARY | 2024-11-29 15:00 | XMS_ITS | Encounter Summary ---
Author Organization [facility] Address [address] [place] [address] Care Team Providers Care Indian Trader Name Role Phone Alfredo Clark MD Primary Care Provider [phone] Reason for Visit * Reason Comments Information Encounter Details Date Type Department Care Team (Late st Contact Info) Description 10/30/2024 Telephone [facility] Primary Care [address] [place] [address] [place] [address] Alfredo Clark MD [address] [place] [address] [place] [address] [place] [address] Information Social History Tobacco Use Types Packs/Day [...] any clubs o r organizations such as yarsani groups, unions, fraternal or athletic groups, or [...] on file 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 Topic: Patient or Caregiver Communication Request >> Oct 30, 2024 10:41 AM Kandace Zimmerman wrote: Patient or Caregiver requesting that a message be sent to Care Team Caller: Ayesha Mccabe Patient/Caregiver Callback Number: Telephone Information: Call Notes: She wanted let Eduardo know that she saw Phill Beatty DO on 10/22/24, where she did not need to have the Endoscopy, Her blood pressure at that visit was 120/68 and she has prescribed her famotidine (PEPCID) 20 mg tablet [[id number]] to help with her acid reflux documented in this encounter Plan of Treatment Upcoming Encounters Date Type Department Care Team (Late st Contact Info) Description 12/29/2024 11:20 AM CDT Office Visit [facility] [address] [place] [address] Alfredo Clark MD [address] [place] [address] [address] [place] [address] documented as of this encounter Visit Diagnoses Not on filedocumented in this encounter Care Teams Indian Trader Relationship Specialty Start Date End Date Alfredo Clark MD PCP - General 11/24/07 documented as of this encounter
[2024-11-29 15:04] VITALS: BP 100/46; PULSE 66; RESP 20; TEMP 36.6; O2SAT 99
--- NOTE | 2024-11-29 15:42 | ED.EAR ---
HPI - Ear Problem General Chief complaint: Ear Stated complaint: clogged ears Time Seen by Provider: 11/29/24 15:12 Source: patient and RN notes reviewed Mode of arrival: ambulatory Limitations: no limitations History of Present Illness HPI Narrative: Patient presents today complaining of a 1-2 week history of bilateral ear clogging and muffled hearing that has been intermittent in nature. She did try some wax softening drops a few weeks ago without improvement. She has had to have her ears cleaned wax in the past. Denies pain Related Data Home Medications ?Medication ?Instructions ?Recorded ?Confirmed ?Last Taken ?Type amlodipine 5 mg tablet 5 mg PO DAILY 01/06/22 01/06/22 Unknown History levothyroxine 25 mcg tablet 25 mcg PO DAILY 01/06/22 01/06/22 Unknown History losartan 50 mg tablet 50 mg PO DAILY 01/06/22 01/06/22 Unknown History pantoprazole 40 mg tablet,delayed 40 mg PO DAILY 01/06/22 01/06/22 Unknown History release pravastatin 40 mg tablet 40 mg PO DAILY 01/06/22 01/06/22 Unknown History famotidine 20 mg tablet mg 11/29/24 Unknown History metoprolol succinate 100 mg mg PO 11/29/24 Unknown History tablet,extended release 24 hr Allergies Allergy/AdvReac Type Severity Reaction Status Date / Time No Known Allergies Allergy Verified 11/29/24 15:12 Review of Systems Review of Systems: CONSTITUTIONAL: Denies body aches, fever, chills, or sweats. EYES: Denies visual changes, redness, or discharge. ENT: Denies rhinorrhea, congestion, sore throat, or otalgia.+ bilateral ear clogging with decreased hearing CARDIOVASCULAR: Denies chest pain, palpitations, or edema. RESPIRATORY: Denies cough or dyspnea. GASTROINTESTINAL: Denies abdominal pain, nausea, vomiting, or diarrhea. GENITOURINARY: Denies dysuria or hematuria. SKIN: Denies rash, itching, or wounds. MUSCULOSKELETAL: Denies back pain, joint pain, or myalgia. NEUROLOGIC: Denies headache, numbness, tingling, or weakness. PSYCH: Denies depression or anxiety. PMFSH Comments At time of signature, I have reviewed and agree with nursing past medical, surgical, social and family history unless otherwise noted. Please see nursing chart for further information. There is no relevant family history pertinent to the presenting complaint Exam Narrative: GENERAL: Well-appearing, well-nourished, and in no acute distress. HEAD: Normocephalic, atraumatic. EYES: EOMI. No redness or drainage. Conjunctivae normal. ENT: Mucous membranes pink and moist. Bilateral cerumen impactions. NECK: Normal AROM. CHEST: No respiratory distress. EXTREMITIES: Normal range of motion. No edema. SKIN: Warm, dry, no rash. Capillary refill normal. Normal skin turgor. NEURO: No focal deficits. Alert and oriented x3. Gait steady. PSYCH: Normal affect. No signs of depression or anxiety. Course Course Level of Care: Express Care Visit Vital Signs Vital signs: Vital Signs Temperature 97.9 F 11/29/24 15:04 Pulse Rate 66 11/29/24 15:04 Respiratory Rate 11/29/24 15:04 Blood Pressure 100/46 L 11/29/24 15:04 Pulse Oximetry 99 11/29/24 15:04 Oxygen Delivery Room Air 11/29/24 15:04 Temperature 97.9 F 11/29/24 15:04 Pulse Rate 66 11/29/24 15:04 Respiratory Rate 11/29/24 15:04 Blood Pressure 100/46 L 11/29/24 15:04 Pulse Oximetry 99 11/29/24 15:04 Oxygen Delivery Room Air 11/29/24 15:04 Reviewed Procedures Ear Wax Removal Both Ears: Ear Wax Removal Date: 11/29/24 Ear Wax Removal Time: 15:42 Cerumenolytic Used: other (water and small amount of peroxide) Results: Re-examined: cerumen removed completely TM Examination: TM(s) intact, normal appearance Ear Canal Exam: atraumatic Patient Tolerated Procedure: well Complications: no problems Technique: ear canal irrigated and ear canal curetted Medical Decision Making MDM Narrative Medical decision making narrative: Both ears were flushed of cerumen. TMs intact without evidence of infection. Patient's hearing restored. Anticipatory guidance given. Differential Diagnosis Differential Diagnosis: Otitis media, otitis externa, ruptured TM, serous otitis, cerumen impaction Vital Signs Vital Signs: Vital Signs Temperature 97.9 F 11/29/24 15:04 Pulse Rate 66 11/29/24 15:04 Respiratory Rate 11/29/24 15:04 Blood Pressure 100/46 L 11/29/24 15:04 Pulse Oximetry 99 11/29/24 15:04 Oxygen Delivery Room Air 11/29/24 15:04 Temperature 97.9 F 11/29/24 15:04 Pulse Rate 66 11/29/24 15:04 Respiratory Rate 20 11/29/24 15:04 Blood Pressure 100/46 L 11/29/24 15:04 Pulse Oximetry 99 11/29/24 15:04 Oxygen Delivery Room Air 11/29/24 15:04 Critical Care Time Critical Care Time Critical Care Time: No Discharge Plan Discharge Clinical Impression: Bilateral impacted cerumen Patient Disposition: Home Condition: Stable Additional Instructions: Your ear wax has been completely removed from both ear canals. Your ear drums and canals appear normal. Follow-up with your PCP with any additional concerns. Patient Language: Cambodian Prescriptions: No Action losartan 50 mg tablet 50 mg PO DAILY pravastatin 40 mg tablet 40 mg PO DAILY amlodipine 5 mg tablet 5 mg PO DAILY levothyroxine 25 mcg tablet 25 mcg PO DAILY pantoprazole 40 mg tablet,delayed release (DR/EC) 40 mg PO DAILY metoprolol succinate 100 mg tablet extended release 24 hr PO famotidine 20 mg tablet Follow-up/Referrals: Eduardo,Alfredo Rodriguez MD [Primary Care Provider] - Time of Disposition: 15:43
== END 2024-11-29 15:46 | disposition home or self-care (01) ==
PROVIDERS: Emergency Provider Nurse Practitioner; PCP Internal Medicine
DX: H61.23 Impacted cerumen, bilateral (principal); I10 Essential (primary) hypertension; E78.00 Pure hypercholesterolemia, unspecified; E03.9 Hypothyroidism, unspecified; K21.9 Gastro-esophageal reflux disease without esophagitis
CPT/HCPCS: 69210; 99212; A9270; G0463